=== PATIENT | male | born 1980 | race Caucasian/White ===

== ENCOUNTER 2021-04-24 07:49 | Outpatient (REF) | payer BC, SELFPAY ==
[2021-04-24 10:47] LABS: Alanine Aminotransferase 25 U/L (0-40); Albumin Level 4.6 g/dL (3.5-5.0); Alkaline Phosphatase 109 U/L (39-117); Anion Gap 14 (12-20); Aspartate Amino Transferase 17 U/L (5-37); Bilirubin Total 0.7 mg/dL (0.0-1.0); Blood Urea Nitrogen 13 mg/dL (9-16); Calcium 9.5 mg/dL (8.4-10.2); Carbon Dioxide 26 mmol/L (22-29); Chloride 104 mmol/L (96-108); Cholesterol 130 mg/dL; Estimated Glomerular Filt Rate > 60; Glucose Fasting 121 mg/dL (60-99); HDL Cholesterol 50 mg/dL; LDL Cholesterol Calculated 70 mg/dl; Potassium 4.4 mmol/L (3.3-5.1); Sodium 140 mmol/L (135-145); Total Protein 7.2 g/dL (6.5-8.0); Triglycerides 54 mg/dL
[2021-04-24 11:09] LABS: Free T4 (Free Thyroxine) 0.79 ng/dL (0.71-1.85); Thyroid Stimulating Hormone 0.48 uIU/mL (0.32-4.0); Vitamin D 25-OH Total 41.2 ng/mL (>30)
[2021-04-24 11:17] LABS: Creatinine Urine 136.39 mg/dL; Microalbum/Creatinine Ratio Ur 6.5 ug/mg cr
[2021-04-24 11:18] LABS: Vitamin B12 215 pg/mL (200-900)
[2021-04-25 08:36] LABS: LDL Cholesterol Direct 72 mg/dL (<100)
== END 2021-04-24 07:50 | disposition home or self-care (01) ==
LOC: HO.10HDL 07:49
PROVIDERS: Visit Provider Internal Medicine Endocrinology, Diabetes & Metabolism
DX: E11.9 Type 2 diabetes mellitus without complications (principal); E78.5 Hyperlipidemia, unspecified; E55.9 Vitamin D deficiency, unspecified; E66.3 Overweight; Z68.25 Body mass index [BMI] 25.0-25.9, adult; Z88.5 Allergy status to narcotic agent; Z79.84 Long term (current) use of oral hypoglycemic drugs
CPT/HCPCS: 36415; 80053; 80061; 82043; 82306; 82607; 82947; 83721; 84439; 84443

== ENCOUNTER → 2021-08-02 10:05 | Outpatient (BNVA) | payer BC, SELFPAY | PROVIDERS: PCP Nurse Practitioner Family; Visit Provider Orthopaedic Surgery ==

== ENCOUNTER 2021-10-18 15:30 | Emergency (ER) | payer BC, SELFPAY ==
--- NOTE | ~2021-10-18 | CT_ITS ---
EXAMINATION: CT ABDOMEN AND PELVIS WITHOUT CONTRAST CLINICAL INFORMATION: Right flank pain. COMPARISON: 09/15/2011 TECHNIQUE: Multidetector volumetric imaging was performed from the superior aspect of the liver through the pubic symphysis. Sagittal and coronal reformatted images were obtained on the technologist's workstation. This CT examination was performed using dose optimization techniques as appropriate, variously including the following: *Automated exposure control *Adjustment of mA and/or kV according to patient size (this includes techniques or standardized protocols for targeted exams where dose is matched to indication/reason for exam; i.e. extremities or head) *Use of iterative reconstruction technique DLP: 493 mGy-cm FINDINGS: LUNG BASES: Normal. No pulmonary consolidation or pleural effusion at either lung base. LIVER: The liver has normal size, shape, and attenuation. No evidence of liver mass. GALLBLADDER AND BILIARY TREE: Gallbladder is without radiopaque stones, wall thickening or pericholecystic fluid. No dilated bile ducts. PANCREAS: Normal. No edema, pancreatic ductal dilatation or mass. SPLEEN: Normal. ADRENAL GLANDS: Normal. LEFT KIDNEY AND URETER: There is chronic cortical loss/scarring of the anterior lower pole of the left kidney. No renal mass. A linear, 0.4 cm calculus in the upper pole of the left kidney is too small for acquisition of a reliable density measurement. This stone is located 8.6 cm deep from the skin surface at the posterior axillary line. No left-sided hydroureteronephrosis. RIGHT KIDNEY AND URETER: The kidney has normal size and cortical thickness. Mild right hydroureteronephrosis is caused by a stone measuring up to 0.4 cm at the L3 level of the proximal ureter. BLADDER: Normal. No calculi or wall thickening. BOWEL AND PERITONEUM: Stomach is unremarkable. No dilated loops of bowel. The appendix is normal. No overt bowel wall thickening or mesenteric fat stranding. No ascites or pneumoperitoneum. ABDOMINAL WALL: Unremarkable. VASCULATURE: Unremarkable. LYMPH NODES: No pathologic sized lymph nodes in the abdomen or pelvis. No inguinal lymphadenopathy. PELVIC VISCERA: Unremarkable. SKELETAL: Unremarkable. CT/CT abdomen pelvis wo con IMPRESSION: * Mild right hydronephrosis is caused by a 0.4 cm stone in the proximal ureter. * Small stone is present in the upper pole of the left kidney. No left-sided hydronephrosis.
[2021-10-18 17:33] VITALS: BP 135/94; PULSE 97; RESP 18; TEMP 37; O2SAT 99; BMI 26.2
[2021-10-18 17:51] LABS: MANUAL DIFF FLAG NO
[2021-10-18 17:52] LABS: Basophils Percent Auto 0.2 % (0-2); Eosinophils Percent Auto 0.1 % (0-4); Hematocrit 42.5 % (42.0-52.0); Hemoglobin 15.1 g/dl (14.0-18.0); Imm Gran Abs Auto 0.07 X10*3/uL (0.00-0.03); Imm Gran Pct Auto 0.5 % (0.0-0.4); Lymphocytes Absolute Auto 1.4 X10*3/uL (1.2-4.9); Lymphocytes Percent Auto 9.4 % (20-40); Mean Corpuscular HGB Conc 35.5 g/dl (31.0-36.0); Mean Corpuscular Hemoglobin 30.8 pg (27.0-33.0); Mean Corpuscular Volume 86.7 fL (80.0-98.0); Mean Platelet Volume 10.4 fL (9.4-12.4); Monocytes Absolute Auto 0.6 X10*3/uL (0.1-1.2); Neutrophils Absolute Auto 12.7 x10*3/uL (2.0-8.3); Neutrophils Percent Auto 85.8 % (45-73); Platelet Count 275 X10*3/uL (160-400); Red Cell Distribution Width 12.2 % (11.0-16.0); White Blood Count 14.8 X10*3/uL (4.8-10.8)
[2021-10-18 18:07] LABS: Alanine Aminotransferase 24 U/L (0-40); Alkaline Phosphatase 129 U/L (39-117); Anion Gap 15 (12-20); Aspartate Amino Transferase 18 U/L (5-37); Bilirubin Total 0.4 mg/dL (0.0-1.0); Blood Urea Nitrogen 15 mg/dL (9-16); Calcium 9.9 mg/dL (8.4-10.2); Carbon Dioxide 28 mmol/L (22-29); Chloride 101 mmol/L (96-108); Creatinine Clr Calc Pharmacy 77.5; Estimated Glomerular Filt Rate > 60; Glucose Random 147 mg/dL (60-115); Potassium 4.6 mmol/L (3.3-5.1); Sodium 139 mmol/L (135-145); Total Protein 7.8 g/dL (6.5-8.0)
[2021-10-18 19:15] LABS: Appearance Urine CLEAR; Color Urine YELLOW; Glucose Urine UA NEG (NEG); Leukocyte Esterase Urine NEG (NEG); Nitrite Urine NEG (NEG); Specific Gravity - Urine >= 1.030 (1.005-1.025); UACC Culture Trigger NO; Urine Blood 2+ (NEG); Urine Ketones 15 MG/DL (NEG); Urine Protein TRACE MG/DL (NEG-TRACE)
[2021-10-18 19:25] LABS: Calcium Oxalate Crystals Urine TRACE /LPF; Mucus Urine TRACE /LPF; Squamous Epithelial Cell Urine TRACE /LPF
[2021-10-18 19:26] LABS: WBC Urine 0-2 /HPF (0-4)
--- NOTE | 2021-10-18 21:19 | ED_ITS ---
HPI - Abdominal Pain General Chief Complaint: Abdominal Pain Stated Complaint: Kidney pain Time Seen by Provider: 10/18/21 21:19 Source: patient Mode of arrival: ambulatory Limitations: no limitations History of Present Illness HPI narrative: Pain in the right flank radiating to the right groin, pain started 3 days ago but got worse today. Patient denies dysuria or hematuria. Patient denies fever, vomiting or diarrhea. States he was sweating. MD elicited complaint: abdominal pain and flank pain Pertinent past history: kidney stones Onset (ago): day(s) Pain Consistency: intermittent Location: RUQ and R flank Severity: moderate Quality: other (twisting) Radiation: other (right groin) Related Data Previous Rx's Medication Instructions Recorded OneTouch UltraSoft Lancets #50 ea NS 04/24/21 (lancets) atorvastatin 10 mg tablet 10 mg PO DAILY 30 Days #30 tab 04/24/21 blood sugar diagnostic (OneTouch #50 ea 04/24/21 Verio test strips) cholecalciferol (vitamin D3) 50 50 mcg PO DAILY 30 Days #30 cap 04/24/21 mcg (2,000 unit) capsule metformin 500 mg tablet,extended 1,000 mg PO BID 30 Days #120 tab 04/24/21 release 24 hr naproxen 500 mg tablet (Naprosyn) 500 mg PO BID #20 tab 10/18/21 prednisone 20 mg tablet 20 mg PO DAILY #14 tab 10/18/21 tamsulosin 0.4 mg capsule (Flomax) 0.4 mg PO BEDTIME #14 cap 10/18/21 Allergies Allergy/AdvReac Type Severity Reaction Status Date / Time morphine [MORPHINE] Allergy Intermediate HIVES Verified 10/18/21 17:33 oxycodone Allergy Hives Verified 10/18/21 17:33 Review of Systems Constitutional: Reports no additional constitutional complaints Eyes: Reports no additional eye complaints Denies dizziness Cardiovascular: Reports no additional cardiovascular complaints Respiratory: Reports as per HPI Gastrointestinal: Reports no additional gastrointestinal complaints Musculoskeletal: Reports no additional musculoskeletal complaints Skin/Breast: Denies rash Reports system reviewed and no additional complaints, except as documented, Denies dizziness and Denies Sensory deficit (Neuro) Psychiatric: Denies anxiety Physical Exam Vital Signs: Vital Signs: Last Vital Signs Temp 98.6 F 10/18/21 17:33 Pulse 80 10/18/21 22:05 Resp 16 10/18/21 22:05 BP 119/79 10/18/21 22:05 Pulse Ox 97 10/18/21 22:05 Body Mass Index 26.2 Const: General: healthy appearing Nutritional Appearance: average body habitus Orientation/consciousness: oriented to person and patient oriented x3 Limitations: no limitations HENMT: Head: Yes normal to inspection Ears: external ears normal General nose exam: Normal external nose present Mouth: Normal oral and palatal mucosa present and oropharynx normal Throat: Yes posterior oropharynx normal Eyes: General: appearance normal, both eyes and all related structures Neck: Other: supple Neck: Yes normal visual inspection Chest: Chest palpation & inspection: normal inspection of the chest Resp: Auscultation: clear to auscultation bilaterally Cardio: Jugular venous distension: no JVD Rate: regular rate Rhythm: regular rhythm Heart sounds: S1 normal heart sound present and S2 normal heart sound present GI: Inspection: Yes normal to inspection Palpation (GI): Soft to palpation, nontender and No hepatosplenomegaly present Auscultation: normal bowel sounds : General: Yes no CVA tenderness Back/Spine/Pelvis: Back: no CVA tenderness Skin: General skin exam: no rashes or lesions noted Neuro: General: oriented to person and patient oriented x3 Cranial nerves: Yes CN's II-XII intact bilaterally Motor exam (neuro): 5/5 motor strength present throughout Sensory Exam: No Sensory deficit (Neuro) Extrem: General: Yes normal to inspection Psych: Appearance: grossly normal Course Reevaluation(s) Reevaluation #1: patient with 4mm proximal ureteral stone with hydro. Will place on naprosyn, flomax, steroids and refer to Dr. Roldan Time: 23:23 MDM - Abdominal Pain Lab Data Result diagrams: 10/18/21 17:41 10/18/21 17:41 Labs: Lab Results 10/18/21 10/18/21 10/18/21 Range/Units 17:41 17:41 18:29 WBC 14.8 H (4.8-10.8) X10*3/uL RBC 4.90 (4.60-5.80) X10*6/uL Hgb 15.1 (14.0-18.0) g/dl Hct 42.5 (42.0-52.0) % MCV 86.7 (80.0-98.0) fL MCH 30.8 (27.0-33.0) pg MCHC 35.5 (31.0-36.0) g/dl RDW 12.2 (11.0-16.0) % Plt Count 275 (160-400) X10*3/uL MPV 10.4 (9.4-12.4) fL Immature Gran % (Auto) 0.5 H (0.0-0.4) % Neut % (Auto) 85.8 H (45-73) % Lymph % (Auto) 9.4 L (20-40) % [place] % (Auto) 4.0 (2-11) % Eos % (Auto) 0.1 (0-4) % Baso % (Auto) 0.2 (0-2) % Lymph # (Auto) 1.4 (1.2-4.9) X10*3/uL [place] # (Auto) 0.6 (0.1-1.2) X10*3/uL Eos # (Auto) 0.0 (0.0-0.4) X10*3/uL Baso # (Auto) 0.0 (0.0-0.2) X10*3/uL Abs Immat Gran (auto) 0.07 H (0.00-0.03) X10*3/uL Absolute Neuts (auto) 12.7 H (2.0-8.3) x10*3/uL Absolute Nucleated RBC 0.000 (0.0-0.012) X10*3/uL Nucleated RBC % (auto) 0.0 (0.0-0.2) /100WBC Sodium 139 (135-145) mmol/L Potassium 4.6 (3.3-5.1) mmol/L Chloride 101 (96-108) mmol/L Carbon Dioxide 28 (22-29) mmol/L Anion Gap 15 (12-20) BUN 15 (9-16) mg/dL Creatinine 1.16 (0.5-1.4) mg/dL Estim Creat Clear Calc 77.5 Estimated GFR > 60 Random Glucose 147 H (60-115) mg/dL Calcium 9.9 (8.4-10.2) mg/dL Total Bilirubin 0.4 (0.0-1.0) mg/dL AST 18 (5-37) U/L ALT 24 (0-40) U/L Alkaline Phosphatase 129 H (39-117) U/L Total Protein 7.8 (6.5-8.0) g/dL Albumin 5.0 (3.5-5.0) g/dL Urine Color YELLOW Urine Appearance CLEAR Urine pH 6.0 (5.0-8.0) Ur Specific [place] >= 1.030 H (1.005-1.025) Urine Protein TRACE (NEG-TRACE) MG/DL Urine Glucose (UA) NEG (NEG) MG/DL Urine Ketones 15 (NEG) MG/DL Urine Blood 2+ H (NEG) Urine Nitrite NEG (NEG) Ur Leukocyte Esterase NEG (NEG) Urine RBC 10-14 H (0) /HPF Urine WBC 0-2 (0-4) /HPF Ur Squamous Epith Cells TRACE /LPF Calcium Oxalate Crystal TRACE /LPF Urine Bacteria NONE /LPF Urine Mucus TRACE /LPF Imaging Data CT scan - abdomen: Radiologist's impression: IMPRESSION: *? Mild right hydronephrosis is caused by a 0.4 cm stone in the proximal ureter. *? Small stone is present in the upper pole of the left kidney. No left-sided hydronephrosis. ? Discharge Plan Discharge Clinical Impression: Renal colic on right side Patient Disposition: Home, Self-Care Instructions: Kidney Stones (ED), Renal Colic (ED), How to Strain Your Urine (ED) Additional Instructions: strain all urine for kidney stones Prescriptions: New naproxen [Naprosyn] 500 mg tablet 500 mg PO BID Qty: 20 RF: 0 tamsulosin [Flomax] 0.4 mg capsule 0.4 mg PO BEDTIME Qty: 14 RF: 0 prednisone 20 mg tablet 20 mg PO DAILY Qty: 14 RF: 0 No Action atorvastatin 10 mg tablet 10 mg PO DAILY 30 Days Qty: 30 RF: 6 (DME) OneTouch Verio test strips Strip See Rx Instructions .ROUTE .MEDSUPPLY Qty: 50 RF: 6 cholecalciferol (vitamin D3) 50 mcg (2,000 unit) capsule 50 mcg PO DAILY 30 Days Qty: 30 RF: 6 (DME) lancets [OneTouch UltraSoft Lancets] Misc See Rx Instructions .ROUTE .MEDSUPPLY Qty: 50 RF: 5 metformin 500 mg tablet extended release 24 hr 1,000 mg PO BID 30 Days Qty: 120 RF: 6 Referrals: Eric Roldan MD [Physician] - 1 week [facility] Past Medical History Medical History Diabetes type 2, controlled Dyslipidemia Overweight (BMI 25.0-29.9) Vitamin D deficiency Surgical History Hx of elbow surgery Family History Family History Father Diabetes mellitus Mother Diabetes mellitus Brother No problems noted. Sister Diabetes mellitus Sister No problems noted. Sister No problems noted. Sister No problems noted. Sister No problems noted. Sister No problems noted. Social History Social History Advance Directives: No Advance Directives Information Provided: No
[2021-10-18 22:05] VITALS: BP 119/79; PULSE 80; RESP 16; O2SAT 97
[2021-10-18] MEDS: Tamsulosin HCL 0.4 MG CAPSULE PO (23:42)
[2021-10-18] MEDS: Ketorolac Tromethamine 15 MG/ML VIAL 30 MG IVPUSH (23:42)
[2021-10-18] MEDS: predniSONE 20 MG TABLET PO (23:42)
== END 2021-10-18 23:48 | disposition home or self-care (01) ==
PROVIDERS: Emergency Provider Emergency Medicine; PCP Nurse Practitioner Family
DX: N13.2 Hydronephrosis with renal and ureteral calculous obstruction (principal); E11.9 Type 2 diabetes mellitus without complications; E78.5 Hyperlipidemia, unspecified; Z79.02 Long term (current) use of antithrombotics/antiplatelets; Z79.899 Other long term (current) drug therapy
CPT/HCPCS: 36415; 74176; 80053; 81001; 85025; 96374; 99284; J1885

== ENCOUNTER → 2022-02-04 09:11 | Outpatient (BNVA) | payer BC, SELFPAY | PROVIDERS: PCP Nurse Practitioner Family; Visit Provider Orthopaedic Surgery ==

== ENCOUNTER 2022-04-23 07:17 | Outpatient (REF) | payer BC, SELFPAY ==
--- NOTE | ~2022-04-23 | MR_ITS ---
EXAMINATION: MRI ELBOW WITHOUT CONTRAST, RIGHT CLINICAL INFORMATION: Right elbow mass with pain. Multiple prior surgeries. Dermoid tumor. COMPARISON: Most recent right elbow MRI dated 02/24/2019. TECHNIQUE: Multisequence MR imaging of the right elbow was obtained without contrast on a high-field strength scanner. FINDINGS: Ulnar collateral ligament: Intact. Common flexor tendon: Intact. Radial collateral ligament: Intact. Common extensor tendon: Mild increased T2 signal within the common extensor tendon, consistent with mild tendinosis and similar when compared to the prior examination. No measurable tear. Biceps/triceps tendon: Intact. Articular cartilage/bone: Intact. Ulnar nerve: Intact. Joint fluid/soft tissues: There is a lobulated, heterogeneously isointense T1 and hyperintense T2 soft tissue mass along the posterolateral aspect of the elbow, similar in location when compared to the prior examination. This has significantly increased in size and currently measures up to 2.3 x 6.3 x 8.1 cm (AP x ML x CC). Minimal adjacent soft tissue edema. This previous study measured up to 1.2 x 3.9 x 4.4 cm. No additional soft tissue mass or fluid collection. No joint effusion. MR/MR elbow RT wo con IMPRESSION: 1. Redemonstration of a lobulated, heterogeneous soft tissue mass along the posterolateral aspect of the elbow measuring up to 2.3 x 6.3 x 8.1 cm. A previously seen mass measured up to 1.2 x 3.9 x 4.4 cm on 02/24/2019. Findings could represent significant interval increase in size versus a recurrent mass. No additional soft tissue mass or fluid collection. 2. Mild common extensor tendinosis, unchanged. No measurable tear.
== END 2022-04-23 07:18 | disposition home or self-care (01) ==
LOC: HO.MRI 07:17
PROVIDERS: Visit Provider Orthopaedic Surgery
DX: R22.31 Localized swelling, mass and lump, right upper limb (principal); D46.1 Refractory anemia with ring sideroblasts
CPT/HCPCS: 73221

== ENCOUNTER 2022-12-20 13:53 | Emergency (ER) | payer BC, SELFPAY ==
--- NOTE | ~2022-12-20 | CT_ITS ---
EXAMINATION: CT ABDOMEN AND PELVIS WITHOUT CONTRAST CLINICAL INFORMATION: Left flank/abdominal pain. History of calculi COMPARISON: 10/18/2021 TECHNIQUE: Multidetector volumetric imaging was performed from the lung bases through the pubic symphysis. Sagittal and coronal reformatted images were obtained on the technologist workstation. This CT examination was performed using dose optimization techniques as appropriate, variously including the following: *Automated exposure control *Adjustment of mA and/or kV according to patient size (this includes techniques or standardized protocols for targeted exams where dose is matched to indication/reason for exam; i.e. extremities or head) *Use of iterative reconstruction technique FINDINGS: The lack of intravenous contrast limits evaluation of the solid visceral organs including the liver, spleen, pancreas, and kidneys. LUNG BASES: The visualized lung bases are unremarkable. LIVER, GALLBLADDER, AND BILIARY TREE: Limited non-contrast evaluation is normal. No gross focal hepatic lesion. Normal liver size and contour. No gross biliary ductal dilation. The gallbladder is unremarkable with no evidence of radiopaque gallstones, gallbladder wall thickening, or obvious pericholecystic inflammatory changes. PANCREAS: Limited non-contrast evaluation is normal. No ailyn-pancreatic fluid. SPLEEN: Limited non-contrast evaluation is normal. ADRENAL GLANDS: Normal; no adrenal mass. KIDNEYS AND URETERS: Normal appearance of the right kidney. There is cortical thinning, atrophy, and volume loss of the anterior cortex of the lower pole of the left kidney. There is asymmetric left perinephric fluid and fat stranding. Mildly dilated left ureter followed into the pelvis where there is a 3 mm calculus on image 81/101. Additional pelvic phleboliths are present. No right-sided urolithiasis. GASTROINTESTINAL TRACT: Stomach is significantly distended. Small bowel nondilated. Normal appendix. Scattered colonic diverticulosis. No evidence of colitis or diverticulitis. ABDOMINAL WALL: Postoperative changes in the inguinal canals bilaterally. LYMPH NODES: No pathologically enlarged lymph nodes in the abdomen or pelvis. VASCULAR: Normal caliber abdominal aorta. BLADDER: Unremarkable. PELVIC VISCERA: Unremarkable. OSSEOUS STRUCTURES: No acute or suspicious osseous abnormalities. CT/CT abdomen pelvis wo IV con IMPRESSION: 3 mm left distal ureteral calculus results in left hydroureter and asymmetric left periureteral and perinephric fat stranding.
--- NOTE | 2022-12-20 13:59 | ED_ITS ---
HPI - Abdominal Pain General Chief Complaint: General Medical <Lore Vásquez CNP - Last Filed: 12/20/22 14:07> Stated Complaint: kidney stone pain <Lore Vásquez CNP - Last Filed: 12/20/22 14:07> Time Seen by Provider: 12/20/22 15:22 <Lore Vásquez CNP - Last Filed: 12/20/22 14:07> Source: patient <Bjorn Brown MD - Last Filed: 12/20/22 16:39> Mode of arrival: ambulatory <Bjorn Brown MD - Last Filed: 12/20/22 16:39> Limitations: no limitations <Bjorn Brown MD - Last Filed: 12/20/22 16:39> History of Present Illness HPI narrative: 42-year-old male with history of kidney stones presents with left flank pain. Pain started acutely today. The pain was a 10/10 previously. Currently a 9/10. Pain has been constant. It is sharp and severe. It is similar to previous kidney stone pain he has had in the past. However, this time his pain is more intense. There is no clear relieving or exacerbating features. He does have urinary frequency but no hematuria or dysuria. He denies any nausea or vomiting. He has no diarrhea or constipation. He also denies any fevers or chills. <Bjorn Brown MD - Last Filed: 12/20/22 16:39> Related Data Home Medications: Previous Rx's Medication Instructions Recorded OneTouch UltraSoft Lancets #50 ea 04/24/21 (lancets) blood sugar diagnostic (OneTouch #50 ea 04/24/21 Verio test strips) naproxen 500 mg tablet (Naprosyn) 500 mg PO BID #20 tabs 10/18/21 tamsulosin 0.4 mg capsule (Flomax) 0.4 mg PO BEDTIME #14 caps 10/18/21 cholecalciferol (vitamin D3) 50 50 mcg PO DAILY 30 days #30 caps 08/17/22 mcg (2,000 unit) capsule metformin 500 mg tablet,extended 1,000 mg PO BID 30 days #120 tabs 08/17/22 release 24 hr atorvastatin 10 mg tablet 10 mg PO DAILY 30 days #30 tabs 10/22/22 ibuprofen 600 mg tablet 600 mg PO Q8H PRN pain #14 tabs 12/20/22 ondansetron 4 mg disintegrating 4 mg PO Q8H PRN nausea and 12/20/22 tablet vomiting #10 tabs ondansetron 4 mg disintegrating 4 mg PO Q8H PRN nausea and 12/20/22 tablet vomiting #10 tabs <Lore Vásquez CNP - Last Filed: 12/20/22 14:07> Allergies/Adverse Reactions: Allergies Allergy/AdvReac Type Severity Reaction Status Date / Time morphine [MORPHINE] Allergy Intermediate HIVES Verified 12/20/22 14:08 oxycodone Allergy Hives Verified 12/20/22 14:08 <Lore Vásquez CNP - Last Filed: 12/20/22 14:07> Review of Systems Review of Systems Yes all other systems are reviewed and are negative <Bjorn Brown MD - Last Filed: 12/20/22 16:39> Constitutional: Reports no additional constitutional complaints <Bjorn Brown MD - Last Filed: 12/20/22 16:39> Eyes: Reports no additional eye complaints <Bjorn Brown MD - Last Filed: 12/20/22 16:39> Reports system reviewed and no additional complaints, except as documented <Bjorn Brown MD - Last Filed: 12/20/22 16:39> Cardiovascular: Reports no additional cardiovascular complaints <Bjorn Borwn MD - Last Filed: 12/20/22 16:39> Respiratory: Reports no additional respiratory complaints <Bjorn Brown MD - Last Filed: 12/20/22 16:39> Gastrointestinal: Reports no additional gastrointestinal complaints and Reports abdominal pain <Bjorn Brown MD - Last Filed: 12/20/22 16:39> Genitourinary: Reports as per HPI <Bjorn Brown MD - Last Filed: 12/20/22 16:39> Musculoskeletal: Reports no additional musculoskeletal complaints <Bjorn Brown MD - Last Filed: 12/20/22 16:39> Skin/Breast: Reports system reviewed and no additional complaints, except as docu <Bjorn Brown MD - Last Filed: 12/20/22 16:39> Reports system reviewed and no additional complaints, except as documented <Bjorn Brown MD - Last Filed: 12/20/22 16:39> Psychiatric: Reports no additional psychiatric complaints <Bjorn Brown MD - Last Filed: 12/20/22 16:39> Endocrine: Reports no additional endocrine complaints <Bjorn Brown MD - Last Filed: 12/20/22 16:39> Hematologic/Lymphatic: Reports no additional hematologic/lymphatic complaints <Bjorn Brown MD - Last Filed: 12/20/22 16:39> [facility] Past Medical History Medical History: Medical History Diabetes type 2, controlled Dyslipidemia Mass of right elbow Overweight (BMI 25.0-29.9) Vitamin D deficiency <Lore Vásquez CNP - Last Filed: 12/20/22 14:07> Surgical History: Surgical History Hx of elbow surgery <Lore Vásquez CNP - Last Filed: 12/20/22 14:07> Family History Family History: Family History Father Diabetes mellitus Mother Diabetes mellitus Brother No problems noted. Sister Diabetes mellitus Sister No problems noted. Sister No problems noted. Sister No problems noted. Sister No problems noted. Sister No problems noted. <Lore Vásquez CNP - Last Filed: 12/20/22 14:07> Social History Social History: Social History Advance Directives: No <Lore Vásquez CNP - Last Filed: 12/20/22 14:07> Physical Exam ED Vital Signs: Vital Signs - 24 hr 12/20/22 14:01 12/20/22 15:05 12/20/22 17:30 Temperature 98.4 F 98.2 F Pulse Rate 86 91 99 Respiratory Rate 20 20 20 Blood Pressure 139/97 H 148/97 H 144/93 H Pulse Oximetry 98 99 97 Oxygen Delivery Method Room Air Room Air Room Air BMI result Body Mass Index 27.0 <Lore Vásquez CNP - Last Filed: 12/20/22 14:07> Vital Signs - 24 hr 12/20/22 14:01 12/20/22 15:05 12/20/22 17:30 Temperature 98.4 F 98.2 F Pulse Rate 86 91 99 Respiratory Rate 20 20 20 Blood Pressure 139/97 H 148/97 H 144/93 H Pulse Oximetry 98 99 97 Oxygen Delivery Method Room Air Room Air Room Air BMI result Body Mass Index 27.0 <Bjorn Brown MD - Last Filed: 12/20/22 16:39> Vital Signs - 24 hr 12/20/22 14:01 12/20/22 15:05 12/20/22 17:30 Temperature 98.4 F 98.2 F Pulse Rate 86 91 99 Respiratory Rate 20 20 20 Blood Pressure 139/97 H 148/97 H 144/93 H Pulse Oximetry 98 99 97 Oxygen Delivery Method Room Air Room Air Room Air BMI result Body Mass Index 27.0 <Kait Pacheco MD - Last Filed: 12/20/22 17:57> Const General: cooperative, healthy appearing, comfortable, no acute distress, well developed, alert, awake and Physically active <Bjorn Brown MD - Last Filed: 12/20/22 16:39> HENMT Head: Yes normal to inspection <Bjorn Brown MD - Last Filed: 12/20/22 16:39> Eyes General: appearance normal, both eyes and all related structures <Bjorn Brown MD - Last Filed: 12/20/22 16:39> Neck Neck: Yes full ROM <Bjorn Brown MD - Last Filed: 12/20/22 16:39> Resp Effort & Inspection: normal respiratory effort <Bjorn Brown MD - Last Filed: 12/20/22 16:39> Auscultation: clear to auscultation bilaterally <Bjorn Brown MD - Last Filed: 12/20/22 16:39> Cardio Rate: regular rate <Bjorn Brown MD - Last Filed: 12/20/22 16:39> Rhythm: regular rhythm <Bjorn Brown MD - Last Filed: 12/20/22 16:39> GI Palpation (GI): Soft to palpation, nontender and no guarding <Bjorn Brown MD - Last Filed: 12/20/22 16:39> General: Yes CVA tenderness (Left) <Bjorn Brown MD - Last Filed: 12/20/22 16:39> Back/Spine/Pelvis Back: CVA tenderness (Left) <Bjorn Brown MD - Last Filed: 12/20/22 16:39> Skin General skin exam: no rashes or lesions noted <Bjorn Brown MD - Last Filed: 12/20/22 16:39> Neuro General: no focal motor deficits <Bjorn Brown MD - Last Filed: 12/20/22 16:39> Extrem General: Yes normal to inspection <Bjorn Brown MD - Last Filed: 12/20/22 16:39> Psych Mental Status: mental status grossly normal <Bjorn Brown MD - Last Filed: 12/20/22 16:39> Course Course Course Narrative: This is an RME: Additional HPI, ROS, PE not included below will be deferred to primary provider. Patient is a 42 year old male presenting to the ED with report left flank/ ABD pain with onset 1.5 hours [employer]. Urinary frequeny associated. denies dysuria, hematuria, fevers, chills. Reports hx of kidney stones, and pain feels similar to this. Took ibuprofen 800mg without improvement. 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 Patient is a 42 year old male presenting to the ED with report left flank/ ABD pain with onset 1.5 hours [employer]. Urinary frequeny associated. denies dysuria, hematuria, fevers, chills. Reports hx of kidney stones, and pain feels similar to this. Took ibuprofen 800mg without im provement. 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 The pain is moderate to severe in nature. It also reports left-sided abdominal pain but there is no tenderness. Does have left CVA tenderness. This highly suggestive of ureterolithiasis. Patient received Toradol with minimal improvement in his symptoms. Reports allergy to morphine. I will ask the patient if he has any significant allergies to Dilaudid at which point we can given this medication. He does have a sister with become up from the hospital. <Bjorn Brown MD - Last Filed: 12/20/22 16:39> Reevaluation(s) Reevaluation #1: Discuss results and discharge plan with patient. Patient is still having pain. Given his allergy, will give patient additional Tylenol at this time. Patient will be discharged once we have a urinalysis available to make sure he does not have an infected stone. Dr. Pacheco will assume care pending urinal ysis. Discharge plans have already been created on behalf the patient is seeming to safe discharge is available. <Bjorn Brown MD - Last Filed: 12/20/22 16:39> Time: 16:39 <Bjorn Brown MD - Last Filed: 12/20/22 16:39> Reevaluation #2: Urinalysis is negative for UTI. Patient does have blood in the urine likely secondary to ureterolithiasis. No antibiotic indicated at this time. <Kait Pacheco MD - Last Filed: 12/20/22 17:57> Medical Decision Making Medical Decision Making [facility] Narrative: 42-year-old male with history of nephrolithiasis presents with left flank and abdominal pain. Examination left CVA tenderness. He is otherwise in no acute distress. His abdomen was not acute by any nature. Denies any nausea vomiting. A CT scan has been ordered. Urinalysis is still pending collection. Patient received Ketoralac without significant improvement. Will discuss other analgesic alternatives. <Bjorn Brown MD - Last Filed: 12/20/22 16:39> Differential Diagnosis Differential Diagnoses: The differential diagnosis associated with the presentation includes (Diverticulitis, ureterolithiasis, nephrolithiasis, colitis, IBD, IBS, shingles) <Bjorn Brown MD - Last Filed: 12/20/22 16:39> Admission/Observation Consideration of admission/observation: Escalation of care including admission/observation considered <Bjorn Brown MD - Last Filed: 12/20/22 16:39> Based on my current evaluation, patient does not warrant hospitalization. Will re-evaluate patient pending results. <Bjorn Brown MD - Last Filed: 12/20/22 16:39> Lab Data [facility] Lab Attestation statement: I reviewed the patient's lab results. <Bjorn Brown MD - Last Filed: 12/20/22 16:39> Result Diagrams: 12/20/22 14:17 12/20/22 14:17 <Lore Vásquez CNP - Last Filed: 12/20/22 14:07> Labs: Lab Results 12/20/22 12/20/22 12/20/22 Range/Units 14:17 14:17 17:05 WBC 9.5 (4.8-10.8) X10*3/uL RBC 5.63 (4.60-5.80) X10*6/uL Hgb 16.6 (14.0-18.0) g/dl Hct 46.5 (42.0-52.0) % MCV 82.6 (80.0-98.0) fL MCH 29.5 (27.0-33.0) pg MCHC 35.7 (31.0-36.0) g/dl RDW 11.9 (11.0-16.0) % Plt Count 274 (160-400) X10*3/uL MPV 10.9 (9.4-12.4) fL Immature Gran % (Auto) 0.4 (0.0-0.4) % Neut % (Auto) 71.4 (45-73) % Lymph % (Auto) 22.7 (20-40) % [place] % (Auto) 5.0 (2-11) % Eos % (Auto) 0.1 (0-4) % Baso % (Auto) 0.4 (0-2) % Lymph # (Auto) 2.2 (1.2-4.9) X10*3/uL [place] # (Auto) 0.5 (0.1-1.2) X10*3/uL Eos # (Auto) 0.0 (0.0-0.4) X10*3/uL Baso # (Auto) 0.0 (0.0-0.2) X10*3/uL Abs Immat Gran (auto) 0.04 H (0.00-0.03) X10*3/uL Absolute Neuts (auto) 6.8 (2.0-8.3) x10*3/uL Absolute Nucleated RBC 0.000 (0.0-0.012) X10*3/uL Nucleated RBC % (auto) 0.0 (0.0-0.2) /100WBC Sodium 138 (135-145) mmol/L Potassium 4.1 (3.3-5.1) mmol/L Chloride 100 (96-108) mmol/L Carbon Dioxide 27 (22-29) mmol/L Anion Gap 15 (12-20) BUN 16 (9-16) mg/dL Creatinine 1.17 (0.5-1.4) mg/dL Estim Creat Clear Calc 78.7 Estimated GFR > 60 Random Glucose 154 H (60-115) mg/dL Calcium 10.1 (8.4-10.2) mg/dL Total Bilirubin 0.8 (0.0-1.0) mg/dL AST 20 (5-37) U/L ALT 24 (0-40) U/L Alkaline Phosphatase 153 H (39-117) U/L Total Protein 7.8 (6.5-8.0) g/dL Albumin 4.9 (3.5-5.0) g/dL Urine Color Yellow Urine Appearance Clear Urine pH 5.5 (5.0-9.0) Ur Specific [place] >= 1.030 H (1.005-1.025) Urine Protein Trace (Neg-Trace) mg/dL Urine Glucose (UA) 100 H (Negative) mg/dL Urine Ketones 15 (Negative) mg/dL Urine Blood Small (1+) H (Negative) Urine Nitrite Negative (Negative) Ur Leukocyte Esterase Negative (Negative) Urine RBC >20 H (0-2) /HPF Urine WBC 0-5 (0-5) /HPF Ur Squamous Epith Cells 0-2 (0-2) /HPF Urine Bacteria None Seen (None Seen) Hyaline Casts 0-2 (0-2) /LPF <Lore Vásquez CNP - Last Filed: 12/20/22 14:07> Lab Results 12/20/22 12/20/22 12/20/22 Range/Units 14:17 14:17 17:05 WBC 9.5 (4.8-10.8) X10*3/uL RBC 5.63 (4.60-5.80) X10*6/uL Hgb 16.6 (14.0-18.0) g/dl Hct 46.5 (42.0-52.0) % MCV 82.6 (80.0-98.0) fL MCH 29.5 (27.0-33.0) pg MCHC 35.7 (31.0-36.0) g/dl RDW 11.9 (11.0-16.0) % Plt Count 274 (160-400) X10*3/uL MPV 10.9 (9.4-12.4) fL Immature Gran % (Auto) 0.4 (0.0-0.4) % Neut % (Auto) 71.4 (45-73) % Lymph % (Auto) 22.7 (20-40) % [place] % (Auto) 5.0 (2-11) % Eos % (Auto) 0.1 (0-4) % Baso % (Auto) 0.4 (0-2) % Lymph # (Auto) 2.2 (1.2-4.9) X10*3/uL [place] # (Auto) 0.5 (0.1-1.2) X10*3/uL Eos # (Auto) 0.0 (0.0-0.4) X10*3/uL Baso # (Auto) 0.0 (0.0-0.2) X10*3/uL Abs Immat Gran (auto) 0.04 H (0.00-0.03) X10*3/uL Absolute Neuts (auto) 6.8 (2.0-8.3) x10*3/uL Absolute Nucleated RBC 0.000 (0.0-0.012) X10*3/uL Nucleated RBC % (auto) 0.0 (0.0-0.2) /100WBC Sodium 138 (135-145) mmol/L Potassium 4.1 (3.3-5.1) mmol/L Chloride 100 (96-108) mmol/L Carbon Dioxide 27 (22-29) mmol/L Anion Gap 15 (12-20) BUN 16 (9-16) mg/dL Creatinine 1.17 (0.5-1.4) mg/dL Estim Creat Clear Calc 78.7 Estimated GFR > 60 Random Glucose 154 H (60-115) mg/dL Calcium 10.1 (8.4-10.2) mg/dL Total Bilirubin 0.8 (0.0-1.0) mg/dL AST 20 (5-37) U/L ALT 24 (0-40) U/L Alkaline Phosphatase 153 H (39-117) U/L Total Protein 7.8 (6.5-8.0) g/dL Albumin 4.9 (3.5-5.0) g/dL Urine Color Yellow Urine Appearance Clear Urine pH 5.5 (5.0-9.0) Ur Specific [place] >= 1.030 H (1.005-1.025) Urine Protein Trace (Neg-Trace) mg/dL Urine Glucose (UA) 100 H (Negative) mg/dL Urine Ketones 15 (Negative) mg/dL Urine Blood Small (1+) H (Negative) Urine Nitrite Negative (Negative) Ur Leukocyte Esterase Negative (Negative) Urine RBC >20 H (0-2) /HPF Urine WBC 0-5 (0-5) /HPF Ur Squamous Epith Cells 0-2 (0-2) /HPF Urine Bacteria None Seen (None Seen) Hyaline Casts 0-2 (0-2) /LPF <Bjorn Brown MD - Last Filed: 12/20/22 16:39> Lab Results 12/20/22 12/20/22 12/20/22 Range/Units 14:17 14:17 17:05 WBC 9.5 (4.8-10.8) X10*3/uL RBC 5.63 (4.60-5.80) X10*6/uL Hgb 16.6 (14.0-18.0) g/dl Hct 46.5 (42.0-52.0) % MCV 82.6 (80.0-98.0) fL MCH 29.5 (27.0-33.0) pg MCHC 35.7 (31.0-36.0) g/dl RDW 11.9 (11.0-16.0) % Plt Count 274 (160-400) X10*3/uL MPV 10.9 (9.4-12.4) fL Immature Gran % (Auto) 0.4 (0.0-0.4) % Neut % (Auto) 71.4 (45-73) % Lymph % (Auto) 22.7 (20-40) % [place] % (Auto) 5.0 (2-11) % Eos % (Auto) 0.1 (0-4) % Baso % (Auto) 0.4 (0-2) % Lymph # (Auto) 2.2 (1.2-4.9) X10*3/uL [place] # (Auto) 0.5 (0.1-1.2) X10*3/uL Eos # (Auto) 0.0 (0.0-0.4) X10*3/uL Baso # (Auto) 0.0 (0.0-0.2) X10*3/uL Abs Immat Gran (auto) 0.04 H (0.00-0.03) X10*3/uL Absolute Neuts (auto) 6.8 (2.0-8.3) x10*3/uL Absolute Nucleated RBC 0.000 (0.0-0.012) X10*3/uL Nucleated RBC % (auto) 0.0 (0.0-0.2) /100WBC Sodium 138 (135-145) mmol/L Potassium 4.1 (3.3-5.1) mmol/L Chloride 100 (96-108) mmol/L Carbon Dioxide 27 (22-29) mmol/L Anion Gap 15 (12-20) BUN 16 (9-16) mg/dL Creatinine 1.17 (0.5-1.4) mg/dL Estim Creat Clear Calc 78.7 Estimated GFR > 60 Random Glucose 154 H (60-115) mg/dL Calcium 10.1 (8.4-10.2) mg/dL Total Bilirubin 0.8 (0.0-1.0) mg/dL AST 20 (5-37) U/L ALT 24 (0-40) U/L Alkaline Phosphatase 153 H (39-117) U/L Total Protein 7.8 (6.5-8.0) g/dL Albumin 4.9 (3.5-5.0) g/dL Urine Color Yellow Urine Appearance Clear Urine pH 5.5 (5.0-9.0) Ur Specific [place] >= 1.030 H (1.005-1.025) Urine Protein Trace (Neg-Trace) mg/dL Urine Glucose (UA) 100 H (Negative) mg/dL Urine Ketones 15 (Negative) mg/dL Urine Blood Small (1+) H (Negative) Urine Nitrite Negative (Negative) Ur Leukocyte Esterase Negative (Negative) Urine RBC >20 H (0-2) /HPF Urine WBC 0-5 (0-5) /HPF Ur Squamous Epith Cells 0-2 (0-2) /HPF Urine Bacteria None Seen (None Seen) Hyaline Casts 0-2 (0-2) /LPF <Kait Pacheco MD - Last Filed: 12/20/22 17:57> Radiology Impression Discussion of test interpretation with radiology: I have reviewed the radiologist's reading. (IMPRESSION: 3 mm left distal ureteral calculus results in left hydroureter and asymmetric left periureteral and perinephric fat stranding. Dictated By:Lonny Singer MDSigned By:<Electronically signed by Lonny Singer MD in [place]>12/20/22 2518) <Bjorn Brown MD - Last Filed: 12/20/22 16:39> External Record Review External record reviewed: Outpatient record (Endocrinology) <jBorn Brown MD - Last Filed: 12/20/22 16:39> Prescription Management I considered prescription management with: Pain Medication <Bjorn Brown MD - Last Filed: 12/20/22 16:39> Chronic Conditions Patient?s care impacted by: Diabetes <Bjorn Brown MD - Last Filed: 12/20/22 16:39> Medications Administered Discontinued Medications Generic Name Dose Route Start Last Admin Trade Name Freq PRN Reason Stop Dose Admin Acetaminophen 975 mg 12/20/22 16:39 12/20/22 16:47 Acetaminophen 325 Mg Tablet PO 12/20/22 16:40 975 mg ONCE ONE Administration Sodium Chloride 1,000 mls @ 999 mls/hr 12/20/22 15:45 12/20/22 16:48 Ns IV 12/20/22 16:45 Infused .Q1H1M RANDI Infusion Ketorolac Tromethamine 30 mg 12/20/22 14:54 12/20/22 14:59 Ketorolac Tromethamine 30 Mg/Ml Vial IM 12/20/22 14:55 30 mg ONCE ONE Administration <Lore Vásquez CNP - Last Filed: 12/20/22 14:07> Medications Administered Discontinued Medications Generic Name Dose Route Start Last Admin Trade Name Freq PRN Reason Stop Dose Admin Acetaminophen 975 mg 12/20/22 16:39 12/20/22 16:47 Acetaminophen 325 Mg Tablet PO 12/20/22 16:40 975 mg ONCE ONE Administration Sodium Chloride 1,000 mls @ 999 mls/hr 12/20/22 15:45 12/20/22 16:48 Ns IV 12/20/22 16:45 Infused .Q1H1M RANDI Infusion Ketorolac Tromethamine 30 mg 12/20/22 14:54 12/20/22 14:59 Ketorolac Tromethamine 30 Mg/Ml Vial IM 12/20/22 14:55 30 mg ONCE ONE Administration <Bjorn Brown MD - Last Filed: 12/20/22 16:39> Medications Administered Discontinued Medications Generic Name Dose Route Start Last Admin Trade Name Freq PRN Reason Stop Dose Admin Acetaminophen 975 mg 12/20/22 16:39 12/20/22 16:47 Acetaminophen 325 Mg Tablet PO 12/20/22 16:40 975 mg ONCE ONE Administration Sodium Chloride 1,000 mls @ 999 mls/hr 12/20/22 15:45 12/20/22 16:48 Ns IV 12/20/22 16:45 Infused .Q1H1M RANDI Infusion Ketorolac Tromethamine 30 mg 12/20/22 14:54 12/20/22 14:59 Ketorolac Tromethamine 30 Mg/Ml Vial IM 12/20/22 14:55 30 mg ONCE ONE Administration <Kait Pacheco MD - Last Filed: 12/20/22 17:57> Discharge Plan Discharge Clinical Impression: Left flank pain, Renal colic <Lore Vásquez CNP - Last Filed: 12/20/22 14:07> Patient Disposition: Home, Self-Care <Lore Vásquez CNP - Last Filed: 12/20/22 14:07> Instructions: Renal Colic (ED) <Lore Vásquez CNP - Last Filed: 12/20/22 14:07> Additional Instructions: Please follow-up with your primary care physician tomorrow. If you have any worsening or new symptoms, please return to the emergency room or call 911 <Lore Vásquez CNP - Last Filed: 12/20/22 14:07> Prescriptions: New ondansetron 4 mg tablet,disintegrating 4 mg PO Q8H PRN (Reason: nausea and vomiting) Qty: 10 0RF ibuprofen 600 mg tablet 600 mg PO Q8H PRN (Reason: pain) Qty: 14 0RF ondansetron 4 mg tablet,disintegrating 4 mg PO Q8H PRN (Reason: nausea and vomiting) Qty: 10 0RF No Action cholecalciferol (vitamin D3) 50 mcg (2,000 unit) capsule 50 mcg PO DAILY 30 Days Qty: 30 6RF metformin 500 mg tablet extended release 24 hr 1,000 mg PO BID 30 Days Qty: 120 6RF atorvastatin 10 mg tablet 10 mg PO DAILY 30 Days Qty: 30 6RF naproxen [Naprosyn] 500 mg tablet 500 mg PO BID Qty: 20 0RF tamsulosin [Flomax] 0.4 mg capsule 0.4 mg PO BEDTIME Qty: 14 0RF (DME) OneTouch Verio test strips Strip See Rx Instructions .ROUTE .MEDSUPPLY Qty: 50 6RF Rx Instructions: Once a day (DME) lancets [OneTouch UltraSoft Lancets] [facility] See Rx Instructions .ROUTE .MEDSUPPLY Qty: 50 5RF Rx Instructions: once a day <Lore Vásquez CNP - Last Filed: 12/20/22 14:07> Referrals: [facility] [Provider Group] - 5 days <Lore Vásquez CNP - Last Filed: 12/20/22 14:07>
[2022-12-20 14:01] VITALS: BP 139/97; PULSE 86; RESP 20; TEMP 36.9; O2SAT 98; BMI 27.0
[2022-12-20 14:23] LABS: MANUAL DIFF FLAG NO
--- NOTE | 2022-12-20 14:25 | PC.NURSE ---
42 y/o M pw R flank pain that started last night. pt has a hx of kidney stones and states that this feels similar. No pain/difficulty on urination. no other complaints. VSS, aox3. 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
[2022-12-20 14:27] LABS: Basophils Percent Auto 0.4 % (0-2); Eosinophils Percent Auto 0.1 % (0-4); Hematocrit 46.5 % (42.0-52.0); Hemoglobin 16.6 g/dl (14.0-18.0); Imm Gran Abs Auto 0.04 X10*3/uL (0.00-0.03); Imm Gran Pct Auto 0.4 % (0.0-0.4); Lymphocytes Absolute Auto 2.2 X10*3/uL (1.2-4.9); Lymphocytes Percent Auto 22.7 % (20-40); Mean Corpuscular HGB Conc 35.7 g/dl (31.0-36.0); Mean Corpuscular Hemoglobin 29.5 pg (27.0-33.0); Mean Corpuscular Volume 82.6 fL (80.0-98.0); Mean Platelet Volume 10.9 fL (9.4-12.4); Monocytes Absolute Auto 0.5 X10*3/uL (0.1-1.2); Neutrophils Absolute Auto 6.8 x10*3/uL (2.0-8.3); Neutrophils Percent Auto 71.4 % (45-73); Platelet Count 274 X10*3/uL (160-400); Red Blood Count 5.63 X10*6/uL (4.60-5.80); Red Cell Distribution Width 11.9 % (11.0-16.0); White Blood Count 9.5 X10*3/uL (4.8-10.8)
[2022-12-20 14:43] LABS: Alanine Aminotransferase 24 U/L (0-40); Albumin Level 4.9 g/dL (3.5-5.0); Alkaline Phosphatase 153 U/L (39-117); Anion Gap 15 (12-20); Aspartate Amino Transferase 20 U/L (5-37); Bilirubin Total 0.8 mg/dL (0.0-1.0); Blood Urea Nitrogen 16 mg/dL (9-16); Calcium 10.1 mg/dL (8.4-10.2); Carbon Dioxide 27 mmol/L (22-29); Chloride 100 mmol/L (96-108); Creatinine Clr Calc Pharmacy 78.7; Estimated Glomerular Filt Rate > 60; Glucose Random 154 mg/dL (60-115); Potassium 4.1 mmol/L (3.3-5.1); Sodium 138 mmol/L (135-145); Total Protein 7.8 g/dL (6.5-8.0)
[2022-12-20] MEDS: Ketorolac Tromethamine 30 MG/ML VIAL IM (14:59)
[2022-12-20 15:05] VITALS: BP 148/97; PULSE 91; RESP 20; TEMP 36.8; O2SAT 99
[2022-12-20] MEDS: 0.9 % Sodium Chloride 1,000 ML 999 ML IV (15:56)
[2022-12-20] MEDS: Acetaminophen 325 MG TABLET 975 MG PO (16:47)
[2022-12-20 17:28] LABS: Appearance Urine Clear; Color Urine Yellow; Glucose Urine UA 100 mg/dL (Negative); Leukocyte Esterase Urine Negative (Negative); Nitrite Urine Negative (Negative); PH 5.5 (5.0-9.0); UMIC TRIGGER UACC YES; Urine Blood Small (1+) (Negative); Urine Ketones 15 mg/dL (Negative); Urine Protein Trace mg/dL (Neg-Trace)
[2022-12-20 17:30] VITALS: BP 144/93; PULSE 99; RESP 20; O2SAT 97
[2022-12-20 17:33] LABS: Bacteria Urine None Seen (None Seen); Hyaline Casts Urine 0-2 /LPF (0-2); RBC Urine >20 /HPF (0-2); Squamous Epithelial Cell Urine 0-2 /HPF (0-2); WBC Urine 0-5 /HPF (0-5)
[2022-12-20 17:40] LABS: Specific Gravity - Urine >= 1.030 (1.005-1.025)
== END 2022-12-20 18:05 | disposition home or self-care (01) ==
PROVIDERS: Nurse Practitioner Family; Emergency Provider Emergency Medicine; PCP Nurse Practitioner Family
DX: N23 Unspecified renal colic (principal); R10.9 Unspecified abdominal pain; R35.0 Frequency of micturition
CPT/HCPCS: 36415; 74176; 80053; 81001; 85025; 96360; 96372; 99284; J1885

== ENCOUNTER → 2023-01-14 14:07 | Outpatient (BNVA) | payer BC, SELFPAY | PROVIDERS: PCP Nurse Practitioner Family; Visit Provider Nurse Practitioner Family | DX: Z13.89 Encounter for screening for other disorder (principal) ==

== ENCOUNTER 2023-02-04 07:16 | Day surgery (SDC) | payer BC, SELFPAY ==
--- NOTE | 2023-02-03 11:01 | HO.ANESPROP2 ---
Documented by User: Kriss Toledo NP 02/03/23 11:02 HPI - Anesthesia Eval Consult details Narrative: 42yo M for Left Cystoscopy, Ureteroroscopy, Retro, Laser,poss stent PMFSH Active Problems Active Problems: All Active Problems (Updated 01/14/23 @ 23:19 by JEFFY Vallejo) Left flank pain (Acute) Left ureteral calculus (Acute) Physical exam (Acute) Desmoid fibromatosis (Acute) Overweight (BMI 25.0-29.9) (Acute) Vitamin D deficiency (Acute) Dyslipidemia (Acute) Diabetes type 2, controlled (Acute) Past Medical History Medical History Diabetes type 2, controlled Dyslipidemia Kidney stones Mass of right elbow Overweight (BMI 25.0-29.9) Vitamin D deficiency Family History Family History Father Diabetes mellitus Mother Diabetes mellitus Brother No problems noted. Sister Diabetes mellitus Sister No problems noted. Sister No problems noted. Sister No problems noted. Sister No problems noted. Sister No problems noted. Surgical History Surgical History Hx of elbow surgery Social History Social History Housing: House Patient Tobacco Use Status: Never used Tobacco e-Cigarette/Vaping Use: Never Used Second Hand Smoke Exposure: No Advance Directives: No Advance Directives Information Provided: Yes service: No Current occupational status: employed Current occupation: [employer] Current occupational exposures/hazards: No Cognitive needs: No Hearing needs: No Vision needs: No Meds Allergies Allergy/AdvReac Type Severity Reaction Status Date / Time morphine [MORPHINE] Allergy Intermediate HIVES Verified 01/14/23 23:23 oxycodone Allergy Hives Verified 01/14/23 23:23 Home Medications Medication Instructions Recorded Confirmed Last Taken Type sorafenib 200 mg tablet mg PO 12/31/22 01/14/23 Unknown History Exam Exam Date and Time: February 03, 2023 1101 Pertinent Lab Results Pertinent Lab Results: Laboratory Tests 12/20/22 12/20/22 14:17 14:17 WBC 9.5 Hgb 16.6 Hct 46.5 Plt Count 274 Sodium 138 Potassium 4.1 Chloride 100 Carbon Dioxide 27 BUN 16 Creatinine 1.17 Assessment and Plan Assessment Anesthesia Assessment: Chart Reviewed Documented by User: Hong Pang MD 02/04/23 07:44 [facility] Past Medical History Medical History Diabetes type 2, controlled Dyslipidemia Kidney stones Mass of right elbow Overweight (BMI 25.0-29.9) Vitamin D deficiency Family History Family History Father Diabetes mellitus Mother Diabetes mellitus Brother No problems noted. Sister Diabetes mellitus Sister No problems noted. Sister No problems noted. Sister No problems noted. Sister No problems noted. Sister No problems noted. Family history of problems with anesthesia: No Surgical History Surgical History Hx of elbow surgery History of Problems with Anesthesia: No Social History Social History Housing: House Patient Tobacco Use Status: Never used Tobacco e-Cigarette/Vaping Use: Never Used Second Hand Smoke Exposure: No Advance Directives: No Advance Directives Information Provided: Yes service: No Current occupational status: employed Current occupation: [employer] Current occupational exposures/hazards: No Cognitive needs: No Hearing needs: No Vision needs: No Meds Allergies Allergy/AdvReac Type Severity Reaction Status Date / Time morphine [MORPHINE] Allergy Intermediate HIVES Verified 01/14/23 23:23 oxycodone Allergy Hives Verified 01/14/23 23:23 Home Medications Medication Instructions Recorded Confirmed Last Taken Type sorafenib 200 mg tablet mg PO 12/31/22 01/14/23 Unknown History Exam Airway Mallampati Class: II TM Dist: >3cm Neck ROM: Full Heart: rrr Lungs: cta Assessment and Plan Assessment Anesthesia Assessment: Anesthesia Plan Discussed Final Anesthetic Review Family History of Problems with Anesthesia: No History of Problems with Anesthesia: No NPO: Yes ASA Class: II Final Preanesthetic Review: No Changes in Pt Med Stat, Meds/Allgs Chart Reviewed, Consent Obtained/Reviewed and Anes Risks/Benef Reviewed Patient Risk: Low Procedure Risk: Low Anesthetic Plan Anesthetic Plan: GA Disposition: Standard PACU
--- NOTE | ~2023-02-04 | FL_ITS ---
EXAMINATION: XR FLUOROSCOPY WITH IMAGES CLINICAL INFORMATION: Urinary tract calculus COMPARISON: CT abdomen and pelvis 12/20/2022 TECHNIQUE: Fluoroscopy Supervised By: Dr. Man. Fluoroscopy Time: 20 seconds. Cumulative Dose: 5.0 mGy. Images: 3. FINDINGS: There is contrast in the distal left ureter. No hydroureter or extravasation. No clearly visible intraluminal filling defect. FL/FL guidance in OR IMPRESSION: Fluoroscopy for urologic procedures.
[2023-02-04 07:59] VITALS: BP 127/87; PULSE 90; RESP 18; TEMP 36.4; O2SAT 98; BMI 26.3
[2023-02-04 08:05] LABS: Glucose, Whole Blood 139 mg/dL (60-115)
[2023-02-04] MEDS: Lactated Ringers 1,000 ML 100 ML IVCONT (08:07)
--- NOTE | 2023-02-04 08:32 | MHC.SHP ---
Pre-Procedural Eval Section A Date of Service: 02/04/23 The patient is an INPATIENT: No The History & Physical has been completed within 30 days and I have reviewed it.: Yes Section B Chief Complaint: Calculus of kidney Allergies: Allergies Allergy/AdvReac Type Severity Reaction Status Date / Time morphine [MORPHINE] Allergy Intermediate HIVES Verified 01/14/23 23:23 oxycodone Allergy Hives Verified 01/14/23 23:23 Plan Diagnosis/Plan: Unchanged I have reviewed the history and physical and performed a pertinent physical examination on my patient. No changes have occurred unless specified. Plan for Cystoscopy, left retrograde, possible ureteroscopy, Risks discussed included but not limited to, Irritative voiding symptoms, bladder spasms, urgency, blood in urine. Time Spent With Patient Time: Total time managing care of this patient today ____ minutes.
--- NOTE | 2023-02-04 09:15 | P.OP_ITS ---
Operative Note Operative Note Date of Service: 02/04/23 Narrative: PreOperative Diagnosis:?? Left ureteral stone, left hydronephrosis Post Operative Diagnosis:?? History of left ureteral stone, left hydronephrosis Procedure: - cystoscopy, left retrograde Findings: Hydronephrosis resolved, ureteral stone likely passed Surgeon:?Dr Collette Man Anesthesia:? General Indications for procedure: 42-year-old male presented to ED for left flank pain CT KUB noted left ureteral stone with hydronephrosis. The patient is here for further evaluation. Procedure: After informed consent was verified the patient was brought to the operating room and placed on the OR table in supine position.? General Anesthesia was administered per protocol.? The patient was placed in lithotomy position, prepped and draped in the usual sterile fashion.? Safety pause time-out and side of surgery confirmed.? Antibiotics confirmed. 2% lidocaine jelly, 10 mL, was passed transurethrally. Attempts to place the 22 [place] [employer] cystoscope met with resistance at the meatus. Saida sounds were used to dilate the meatus starting with a 16 [place] [employer] sound and gradually dilated up to 24 [place] [employer]. The 22 [place] [employer] cystoscope was then innserted transurethrally, the bulbous urethra was within normal limits. The prostatic urethra was nonobstructive. The bladder was visualized.? Both ureteric orifices were in normal position. On fluoroscopy there were calcifications seen along the pelvis suggestive of phleboliths. The? left ureteric orifice was cannulated? and a retrograde examination was performed, there were no filling defects noted, no evidence of left ureteral stone, there is no dilatation of the left renal calyces or evidence of obstruction. The contrast cleared the urinary system. The bladder was emptied.? The rigid cystoscope was removed. ? 2% lidocaine jelly 10 mL, was passed transurethrally. The patient tolerated the procedure well and was brought to the recovery room in stable condition. Complications: None Drains: None
[2023-02-04 09:33] VITALS: BP 104/76; PULSE 97; RESP 10; TEMP 36.4; O2SAT 98
[2023-02-04 09:38] VITALS: BP 101/55; PULSE 88; RESP 12; O2SAT 95
[2023-02-04 09:43] VITALS: BP 102/61; PULSE 89; RESP 16; O2SAT 96
[2023-02-04] MEDS: Phenazopyridine HCL 200 MG TABLET PO (09:45)
[2023-02-04 09:48] VITALS: BP 110/63; PULSE 84; RESP 16; O2SAT 97
[2023-02-04 10:03] VITALS: BP 125/87; PULSE 84; RESP 18; TEMP 36.4; O2SAT 97
== END 2023-02-04 10:35 | disposition home or self-care (01) ==
PROVIDERS: PCP Nurse Practitioner Family; Visit Provider Urology
PROC: (CPT 52000; principal; 2023-02-04 09:00)
DX: N13.2 Hydronephrosis with renal and ureteral calculous obstruction (principal); E11.9 Type 2 diabetes mellitus without complications
CPT/HCPCS: 52000; 82947; C1758; C1769; J0690; J1100; J1885; J2405; Q9967

== ENCOUNTER 2023-04-24 09:21 | Outpatient (REF) | payer BC, SELFPAY ==
[2023-04-24 11:20] LABS: MANUAL DIFF FLAG NO
[2023-04-24 11:26] LABS: Appearance Urine Clear; Color Urine Yellow; Glucose Urine UA Negative (Negative); Leukocyte Esterase Urine Negative (Negative); Nitrite Urine Negative (Negative); Urine Blood Negative (Negative); Urine Ketones Negative (Negative); Urine Protein Trace mg/dL (Neg-Trace)
[2023-04-24 11:31] LABS: Basophils Percent Auto 0.5 % (0-2); Eosinophils Percent Auto 0.2 % (0-4); Hematocrit 46.1 % (42.0-52.0); Hemoglobin 16.3 g/dl (14.0-18.0); Imm Gran Abs Auto 0.02 X10*3/uL (0.00-0.03); Imm Gran Pct Auto 0.5 % (0.0-0.4); Lymphocytes Absolute Auto 1.9 X10*3/uL (1.2-4.9); Lymphocytes Percent Auto 42.3 % (20-40); Mean Corpuscular HGB Conc 35.4 g/dl (31.0-36.0); Mean Corpuscular Hemoglobin 30.4 pg (27.0-33.0); Mean Corpuscular Volume 85.8 fL (80.0-98.0); Mean Platelet Volume 11.9 fL (9.4-12.4); Monocytes Absolute Auto 0.4 X10*3/uL (0.1-1.2); Monocytes Percent Auto 8.4 % (2-11); Neutrophils Absolute Auto 2.1 x10*3/uL (2.0-8.3); Neutrophils Percent Auto 48.1 % (45-73); Platelet Count 218 X10*3/uL (160-400); Red Blood Count 5.37 X10*6/uL (4.60-5.80); Red Cell Distribution Width 12.6 % (11.0-16.0); White Blood Count 4.4 X10*3/uL (4.8-10.8)
[2023-04-24 12:04] LABS: Alanine Aminotransferase 37 U/L (0-40); Albumin Level 4.8 g/dL (3.5-5.0); Alkaline Phosphatase 107 U/L (39-117); Anion Gap 12 (12-20); Aspartate Amino Transferase 26 U/L (5-37); Bilirubin Total 1.1 mg/dL (0.0-1.0); Blood Urea Nitrogen 9 mg/dL (9-16); Calcium 9.8 mg/dL (8.4-10.2); Carbon Dioxide 31 mmol/L (22-29); Chloride 106 mmol/L (96-108); Cholesterol 170 mg/dL; Estimated Glomerular Filt Rate > 60; Glucose Fasting 124 mg/dL (60-99); HDL Cholesterol 43 mg/dL; LDL Cholesterol Calculated 115 mg/dl; Sodium 144 mmol/L (135-145); TSH reflex Free T4 1.03 uIU/mL (0.32-4.0); Total Protein 7.8 g/dL (6.5-8.0); Triglycerides 64 mg/dL
[2023-04-24 12:52] LABS: Creatinine Urine 178.76 mg/dL; Microalbum/Creatinine Ratio Ur 25.7 ug/mg cr
== END 2023-04-24 09:22 | disposition home or self-care (01) ==
LOC: HO.HMGCLDS 09:21
PROVIDERS: PCP Nurse Practitioner Family; Visit Provider Nurse Practitioner Family
DX: Z00.00 Encounter for general adult medical examination without abnormal findings (principal); E11.9 Type 2 diabetes mellitus without complications
CPT/HCPCS: 36415; 80053; 80061; 81003; 82043; 84443; 85025

== ENCOUNTER 2024-03-16 16:29 | Outpatient (REF) | payer BC, SELFPAY ==
--- NOTE | ~2024-03-16 | MR_ITS ---
EXAMINATION: MR ELBOW WITHOUT CONTRAST, RIGHT CLINICAL INFORMATION: Desmoid fibromatosis. Lump/mass. COMPARISON: Multiple priors, most recent right elbow MRI dated 04/23/2022. TECHNIQUE: MRI of the elbow was performed using routine sequences on a high-field scanner. FINDINGS: ULNAR COLLATERAL LIGAMENT: Intact. COMMON FLEXOR TENDON: Intact. RADIAL COLLATERAL LIGAMENT: Intact. COMMON EXTENSOR TENDON: Redemonstration of mild thickening and increased intrasubstance T2 signal within the common extensor tendon, consistent with mild tendinosis and not significantly changed. No measurable tear. BICEPS/TRICEPS TENDON: Intact. ARTICULAR CARTILAGE/BONE: No acute fracture or dislocation. No marrow edema or evidence of acute osseous injury. Intact articular cartilage. No osteochondral lesion. ULNAR NERVE: Intact. JOINT FLUID/SOFT TISSUES: Redemonstrated along the posterolateral aspect of the elbow at the level of the distal humerus is a lobulated, peripherally low T1/low T2 signal and centrally high T1/isointense T2 signal focus. This demonstrates increase in peripheral low T1/low T2 signal when compared to the prior examination. Overall this measures approximately 2.3 x 5.9 x 7.7 cm in greatest dimension (previously 2.3 x 6.3 x 8.1 cm) and appear slightly decreased in size when compared to the prior examination. No new soft tissue mass or fluid collection. MR/MR elbow RT wo con IMPRESSION: 1. Redemonstration of a lobulated, peripherally low T1/low T2 signal lesion along the posterolateral aspect of the elbow, slightly decreased in size when compared to the prior examination. This demonstrates increased peripheral low T1/low T2 signal when compared to the prior examination. No new soft tissue mass or fluid collection. 2. Mild common extensor tendinosis, unchanged.
== END 2024-03-16 16:30 | disposition home or self-care (01) ==
LOC: HO.MRI 16:29
PROVIDERS: PCP Nurse Practitioner Family; Visit Provider Internal Medicine Hematology & Oncology
DX: D48.115 Desmoid tumor of upper extremity and shoulder girdle (principal)
CPT/HCPCS: 73221

== ENCOUNTER 2024-03-24 08:55 | Outpatient (AMB) | payer BC, SELFPAY ==
--- NOTE | 2024-03-24 08:57 | MHC.PC.OV ---
Vital Signs 03/24/24 09:00 Height 5 ft 7 in Weight 173 lb 6 oz BMI 27.2 BP 118/68 Blood Pressure Location Rt brachial Position Sitting Pulse 96 Pulse Source Pulse Oximeter Pulse Oximetry (%) 96 Oxygen Delivery Method Room Air Intake Visit Reasons: follow up/ DM Intake Note: Patient here for diabetes f/u. pt does not often check sugars at home. Allergies morphine [MORPHINE] Allergy (Intermediate, Verified 03/24/24 09:01) HIVES oxycodone Allergy (Verified 03/24/24 09:01) Hives Medication List - Last Reconciled 03/24/24 by JEFFY Garcia atorvastatin 10 mg PO DAILY 30 days blood sugar diagnostic ([employer] Verio test strips) Once a day blood-glucose meter ([employer] Ultra2 Meter) tid testing cholecalciferol (vitamin D3) 50 mcg PO DAILY lisinopril 2.5 mg PO DAILY metformin ER 1,000 mg (2 x 500 mg) PO BID OneTouch UltraSoft Lancets (lancets) once a day NS sorafenib mg PO Tobacco use date assessed: 03/24/24 Dental Screening Dental Screen Date: 03/24/24 Did you have a dental visit in the last 12 months?: Yes Did you have a dental problem in the last 6 months where you did not have access to dental care?: No Was dental information given to patient?: Patient has dentist HPI follow up/ DM HPI Details Pt is a diabetic, on an DEMETRIA and a statin. A1C in office today is 7.3. Due for microalbumin in the near future, will order. Denies polyuria, polydipsia, and neuropathy. Pt denies any signs and symptoms of hypoglycemia and does know how to correct it. Will start jardiance 10mg. Pt understands to monitor for yeast infections. Pt reports that his glucometer is not working. Will send a new one. Pt will schedule his own eye exam. Pt reports erythema and itching to his left foot between toes 4 and 5. Will send ketoconazole. [facility] Medical History Diabetes type 2, controlled Dyslipidemia Kidney stones Mass of right elbow Overweight (BMI 25.0-29.9) Vitamin D deficiency Surgical History Hx of elbow surgery Family History Father Diabetes mellitus Mother Diabetes mellitus Brother No problems noted. Sister Diabetes mellitus Sister No problems noted. Sister No problems noted. Sister No problems noted. Sister No problems noted. Sister No problems noted. Social History Housing: House Patient Tobacco Use Status: Never used Tobacco e-Cigarette/Vaping Use: Never Used Second Hand Smoke Exposure: No service: No Current occupational status: employed Current occupation: [employer] Current occupational exposures/hazards: No Cognitive needs: No Hearing needs: No Vision needs: No Questionnaire Thrive Questionnaire Date Thrive assessed: 12/31/22 AUDIT C Alcohol Use Questionnaire (AUDIT-C) 1. How often do you have a drink containing alcohol?: Never 3. How often do you have six or more drinks on one occasion?: Never Total Score: 0 Score Reviewed/Action Taken: No SAMMY-7 AMB Questionnaire SAMMY-7 Date SAMMY - 7 assessed: 12/31/22 Source: Developed by Drs. Zack Verde, Maggi Lechuga, Giacomo Rg and colleagues, with an educational carla from [employer]. Review of Systems Const Reports as per HPI Physical exam (Primary Care) Vital Signs: Last Vital Signs Pulse 96 03/24/24 09:00 BP 118/68 03/24/24 09:00 Pulse Ox 96 03/24/24 09:00 Oxygen Delivery Method Room Air 03/24/24 09:00 BMI result Body Mass Index 27.2 Tobacco/Smoking Status: Tobacco use Status Tobacco use date assessed 03/24/24 03/24/24 09:05 Patient Tobacco Use Status Never used Tobacco 03/24/24 08:58 e-Cigarette/Vaping Use Never Used 03/24/24 08:58 Thrive Assessment: Date of Thrive Assessment Date Thrive assessed 12/31/22 03/24/24 08:58 Const General: cooperative Orientation/consciousness: patient oriented x3 Resp Effort & Inspection: normal respiratory effort Auscultation: clear to auscultation bilaterally Cardio Rate: regular rate Rhythm: regular rhythm Heart sounds: S1 normal heart sound present and S2 normal heart sound present Neuro General: patient oriented x3 Extrem Other: bilat feet: + sensation with use of monofilament, feet intact, left foot between toes 4 and 5 with faint erythema with whitish excoriation (tinea) Psych Appearance: grossly normal Mental Status: mental status grossly normal Speech and movement: Normal speech and movement present Affect: normal affect Attitude: cooperative Thought process: Normal thought process present Thought content: Normal thought content present Insight: Good insight present (Psych) Judgement: Good judgement present (Psych) Results AMB Hemoglobin A1c AMB Hemoglobin A1c 7.3 % Last Edit by SAMMY Eckert on 03/24/24 09:20 Assessment and Plan Assessment & Plan (1) Diabetes type 2, controlled: Code(s): E11.9 - Type 2 diabetes mellitus without complications Plan: Labs ordered, sending new meter Plan The patient agreed to the use of a medical detail representative for this encounter. Scribed for JEFFY Griffin by Nena Mae medical detail representative, on 03/24/2024 at 09:05 EST. Orders: Orders Complete Blood Count Auto Diff Today E11.9 - Type 2 diabetes mellitus without complications Comprehensive [place]. Panel Fast Today E11.9 - Type 2 diabetes mellitus without complications Lipid Panel Today E11.9 - Type 2 diabetes mellitus without complications Microalbumin, Random (w Creat) Today E11.9 - Type 2 diabetes mellitus without complications TSH reflex Free T4 Today E11.9 - Type 2 diabetes mellitus without complications UA CC w/rflx Micro + Cult Today E11.9 - Type 2 diabetes mellitus without complications AMB Hemoglobin A1c Today E11.9 - Type 2 diabetes mellitus without complications Medications: New blood-glucose meter (OneTouch Ultra2 Meter) tid testing 1 ea 0RF diabetes empagliflozin (Jardiance) 10 mg PO DAILY 90 tabs 0RF ketoconazole 2% 1 appl topical DAILY 60 grams 0RF Coding Level of Care Code Est Pt Level 3 (39657) Diagnoses Diabetes type 2, controlled E11.9
[2024-03-24 09:00] VITALS: BP 118/68; PULSE 96; O2SAT 96; BMI 27.2
== END 2024-03-24 09:20 | disposition home or self-care (01) ==
PROVIDERS: PCP Nurse Practitioner Family; Visit Provider Nurse Practitioner Family
DX: E11.9 Type 2 diabetes mellitus without complications (principal)
CPT/HCPCS: 83036; 99213

== ENCOUNTER 2024-11-17 07:56 | Outpatient (REF) | payer BC, SELFPAY ==
[2024-11-17 10:17] LABS: MANUAL DIFF FLAG NO
[2024-11-17 10:23] LABS: Appearance Urine Clear; Color Urine Yellow; Glucose Urine UA >=1000 mg/dL (Negative); Leukocyte Esterase Urine Negative (Negative); Nitrite Urine Negative (Negative); UMIC TRIGGER UACC YES; Urine Blood Negative (Negative); Urine Ketones Negative (Negative); Urine Protein Negative (Neg-Trace)
[2024-11-17 10:30] LABS: Bacteria Urine None Seen (None Seen); Hyaline Casts Urine 0-2 /LPF (0-2); RBC Urine 0-2 /HPF (0-2); Squamous Epithelial Cell Urine 0-2 /HPF (0-2); WBC Urine 0-5 /HPF (0-5)
[2024-11-17 10:32] LABS: Basophils Percent Auto 0.4 % (0-2); Eosinophils Percent Auto 0.7 % (0-4); Hematocrit 43.1 % (42.0-52.0); Hemoglobin 15.2 g/dl (14.0-18.0); Imm Gran Abs Auto 0.04 X10*3/uL (0.00-0.03); Imm Gran Pct Auto 0.9 % (0.0-0.4); Lymphocytes Absolute Auto 1.6 X10*3/uL (1.2-4.9); Lymphocytes Percent Auto 35.8 % (20-40); Mean Corpuscular HGB Conc 35.3 g/dl (31.0-36.0); Mean Corpuscular Hemoglobin 30.4 pg (27.0-33.0); Mean Corpuscular Volume 86.2 fL (80.0-98.0); Monocytes Absolute Auto 0.4 X10*3/uL (0.1-1.2); Monocytes Percent Auto 7.7 % (2-11); Neutrophils Absolute Auto 2.5 x10*3/uL (2.0-8.3); Neutrophils Percent Auto 54.5 % (45-73); Platelet Count 252 X10*3/uL (160-400); Red Cell Distribution Width 12.4 % (11.0-16.0); White Blood Count 4.5 X10*3/uL (4.8-10.8)
[2024-11-17 10:46] LABS: Alanine Aminotransferase 34 U/L (0-40); Albumin Level 4.5 g/dL (3.5-5.0); Alkaline Phosphatase 119 U/L (39-117); Anion Gap 9 (12-20); Aspartate Amino Transferase 24 U/L (5-37); Bilirubin Total 0.6 mg/dL (0.0-1.0); Blood Urea Nitrogen 16 mg/dL (9-16); Calcium 8.9 mg/dL (8.4-10.2); Carbon Dioxide 28 mmol/L (22-29); Chloride 105 mmol/L (96-108); Cholesterol 167 mg/dL (<200); Estimated Glomerular Filt Rate > 60; Glucose Fasting 152 mg/dL (60-99); HDL Cholesterol 45 mg/dL (>40); LDL Cholesterol Calculated 108 mg/dL (<100); Sodium 138 mmol/L (135-145); Total Protein 7.3 g/dL (6.5-8.0); Triglycerides 72 mg/dL (<150)
[2024-11-17 11:04] LABS: TSH reflex Free T4 1.13 uIU/mL (0.32-4.0)
[2024-11-17 11:07] LABS: Creatinine Urine 73.49 mg/dL; Microalbum/Creatinine Ratio Ur 9.5 ug/mg cr (<30)
== END 2024-11-17 07:57 | disposition home or self-care (01) ==
LOC: HO.HMGCLDS 07:56
PROVIDERS: PCP Nurse Practitioner Family; Visit Provider Nurse Practitioner Family
DX: E11.9 Type 2 diabetes mellitus without complications (principal)
CPT/HCPCS: 36415; 80053; 80061; 81001; 82043; 82570; 83036; 84443; 85025

== ENCOUNTER 2024-11-17 09:55 | Outpatient (AMB) | payer BC, SELFPAY ==
[2024-11-17 10:02] VITALS: BP 120/82; PULSE 92; O2SAT 97; BMI 27.2
--- NOTE | 2024-11-17 10:02 | A.OFFPC_ITS ---
Vital Signs 11/17/24 10:02 Height 5 ft 7 in Weight 174 lb BMI 27.2 BP 120/82 Blood Pressure Location Rt brachial Position Sitting Pulse 92 Pulse Source Pulse Oximeter Pulse Oximetry (%) 97 Oxygen Delivery Method Room Air Intake Visit Reasons: 3 mon f/u DM Allergies morphine [MORPHINE] Allergy (Intermediate, Verified 11/17/24 10:03) HIVES oxycodone Allergy (Verified 11/17/24 10:03) Hives Medication List - Last Reconciled 11/17/24 by JEFFY Garcia atorvastatin 10 mg PO DAILY 30 days blood sugar diagnostic ([employer] Verio test strips) Once a day blood-glucose meter ([employer]Touch Ultra2 Meter) tid testing cholecalciferol (vitamin D3) 50 mcg PO DAILY empagliflozin 25 mg PO DAILY ketoconazole 2% 1 appl topical DAILY lisinopril 2.5 mg PO DAILY metformin ER 1,000 mg (2 x 500 mg) PO BID OneTouch UltraSoft Lancets (lancets) once a day NS sorafenib mg PO Tobacco use date assessed: 03/24/24 Dental Screening Dental Screen Date: 03/24/24 HPI 3 mon f/u DM HPI Details Chief Complaint I am here for diabetes management. History of Present Illness The patient is a 44-year-old male presenting with Type 2 Diabetes Mellitus. The patient's blood glucose levels have been fluctuating, with readings around 159 mg/dL, sometimes dropping to 140 mg/dL depending on dietary intake. The patient's hemoglobin A1c is 7.8%, which is slightly above the target of below 7%. The patient reports compliance with metformin and statin therapy but had a brief lapse in medication due to lack of refills. The patient does not experience numbness or tingling in the feet, and a recent eye exam indicated no diabetic retinopathy. Social History - Employed, details about nature of job not specified. - Reports waking early and busy work jade edule before eating first meal. - Dietary habits and nutritional intake not explicitly discussed beyond timing of meals. Health Maintenance - Recent eye exam within one month showi ng no diabetic retinopathy. - Has not received the current year's fl u or pneumonia vaccinations. - Active medication management includes lisinopril, metformin, a statin, and Jardiance. Review of Systems - Neurological: Denies numbness or tingl ing in feet. - Dermatological: Reports presence of a cyst on the scalp. Physical Exam General: Cooperative, healthy appearing, comfortable, no acute distress and well developed Orientation: Patient oriented x3 Limitations: No limitations Head: Normal to inspection, but a cyst noted right occipital Ears: Hearing grossly normal bilaterally Nose: Normal external nose present Face and sinus: Normal facial exam Eyes: Appearance normal, both eyes and all related structures, but patient requires glasses for close vision Neck: Normal visual inspection and Yes full ROM Respiratory: Normal respiratory effort and able to speak in complete sentences. Clear to auscultation bilaterally Cardiovascular: Regular rate and rhythm. Normal S1 and S2 GI: Normal to inspection. Soft to palpation and nontender Skin: No rashes or lesions noted, but a cyst noted on the head Neuro: Patient oriented x3 Extremities: Normal to inspection, good sensation in feet, feet look intact Results - Labs: Hemoglobin A1c 7.8%. Plan - Continue monitoring blood glucose leve ls; aim for A1c below 7%. - Increase Jardiance dosage for Type 2 D iabetes Mellitus management. - Update prescription for metformin to e nsure continuous supply. - Schedule surgical consultation for rem oval of the scalp cyst if it becomes bothersome. - Discuss diabetic foot care and the imp ortance of regular eye exams. - Address medication adherence strategie s to avoid future lapses. - Discuss possibility of starting GLP-1 agonists if Jardiance modification is ineffective. - Continue current antihypertensive and lipid-lowering therapy. Patient was informed and verbally consented to the use of an ambient scribe for clinic note documentation during this visit. Discussion Notes I discussed with the patient the current status of his diabetes management, emphasizing the importance of maintaining an A1c below 7% to reduce the risk of complications. We reviewed his current medication regimen and identified a brief interruption in metformin, which may have contributed to the higher A1c. I recommended increasing the Jardiance dosage as a preferred management strategy and advised against starting GLP-1 agonist injections due to potential side effects and because Jardiance adjustments could suffice. We talked about regular eye exams and the importance of maintaining kidney function with lisinopril. Although the patient has a scalp cyst, it is non-urgent and can be managed electively. I addressed the potential for urinary tract infections/s/s of balanitis explained to pt with use of Jardiance and instructed the patient to be vigilant for symptoms. We agreed to monitor blood glucose levels closely and reconvene to assess the impact of the medication adjustments. Patient Instructions - Continue taking metformin, lisinopril, and statin as prescribed. - Follow up with the pharmacy to ensure timely refills of medications. - Monitor blood glucose levels regularly and maintain a log for review. - Schedule a routine eye exam annually f or diabetic retinopathy screening. - Be attentive to symptoms of urinary tr act infections; report any occurrences promptly. - Consult for cyst removal if it becomes painful or enlarges. - Consider annual flu vaccination for pr eventive health. declined this and pneumo vaccine - Stay hydrated and maintain a balanced diet, considering work schedule constraints. [facility] Medical History Kidney stones Mass of right elbow Overweight (BMI 25.0-29.9) Vitamin D deficiency Dyslipidemia Diabetes type 2, controlled Surgical History Hx of elbow surgery Family History Father Diabetes mellitus Mother Diabetes mellitus Brother No problems noted. Sister Diabetes mellitus Sister No problems noted. Sister No problems noted. Sister No problems noted. Sister No problems noted. Sister No problems noted. 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 1. Little interest or pleasure in doing things: nearly every day 2. Feeling down, depressed, or hopeless: not at all 3. Trouble falling or staying asleep, or sleeping too much: not at all 4. Feeling tired or having little energy: not at all 5. Poor appetite or overeating: not at all 6. Feeling bad about yourself - or that you are a failure or have let yourself or your family down: not at all 7. Trouble concentrating on things, such as reading the newspaper or watching television: not at all 8. Moving or speaking so slowly that other people could have noticed. Or the opposite - being so fidgety or restless that you have been moving around a lot more than usual: not at all 9. Thoughts that you would be better off or of hurting yourself in some way: not at all Total score: 3 Source: Developed by Drs. Zack Verde, Maggi Lechuga, Giacomo Rg and colleagues, with an educational carla from [employer]. Thrive Questionnaire Date Thrive assessed: 12/31/22 I am a: Patient What is your living situation today?: I have a steady place to live Within the past 12 months, did the food you bought not last and you didn't have the money to get more?: Never true Within the past 12 months, did you worry whether your food would run out before you got money to buy more?: Never true Do you have trouble paying for medicines?: No Do you have trouble getting transportation to medical appointments?: No Do you have trouble paying your heating and electricity bill?: No Do you have trouble taking care of your child, family member or friend?: No Do you have trouble with day-to-day activities such as bathing, preparing meals, shopping, managing finances, etc.?: No Are you currently unemployed and looking for a job?: No Are you interested in more education?: No Please select the resources that you would like help with: None Currently or been in a relationship where the following occur: No concerns reported THRIVE Score: 0 AUDIT C Alcohol Use Questionnaire (AUDIT-C) 1. How often do you have a drink containing alcohol?: Never Total Score: 0 SAMMY-7 AMB Questionnaire SAMMY-7 Date SAMMY - 7 assessed: 12/31/22 Feeling nervous, anxious, or on edge: 0 = Not at all Not being able to stop or control worryin = Not at all Worrying too much about different things: 0 = Not at all Trouble relaxin = Not at all Being so restless that it is hard to sit still: 0 = Not at all Becoming easily annoyed or irritable: 0 = Not at all Feeling afraid as if something awful might happen: 0 = Not at all Total SAMMY-7 score (0-4 normal; 5-9 mild; 10-14 moderate; 15-21 severe): 0 Source: Developed by Drs. Zack Verde, Maggi Lechuga, Giacomo Rg and colleagues, with an educational carla from [employer]. Physical exam (Primary Care) Vital Signs: Last Vital Signs Pulse 92 11/17/24 10:02 BP 120/82 11/17/24 10:02 Pulse Ox 97 11/17/24 10:02 Oxygen Delivery Method Room Air 11/17/24 10:02 BMI result Body Mass Index 27.2 Tobacco/Smoking Status: Tobacco use Status Tobacco use date assessed 03/24/24 11/17/24 10:03 Patient Tobacco Use Status Never used Tobacco 11/17/24 10:03 e-Cigarette/Vaping Use Never Used 11/17/24 10:03 PHQ-9: PHQ-9 Score PHQ-9: Total score 3 11/17/24 10:03 Thrive Assessment: Date of Thrive Assessment Date Thrive assessed 12/31/22 11/17/24 10:03 Currently or been in a relationship where the following occur: No concerns reported Coding Level of Care Code Est Pt Level 3 (56515) Diagnoses Screening for colon cancer Z12.11 Assessment & Plan Assessment & Plan (1) Screening for colon cancer: Code(s): Z12.11 - Encounter for screening for malignant neoplasm of colon Category: Medical Plan . Orders: Referrals Gastroenterology Referral Z12.11 - Encounter for screening for malignant neoplasm of colon Medications: Changed From empagliflozin (Jardiance) 10 mg PO DAILY 90 tabs 0RF To empagliflozin 25 mg PO DAILY 90 tabs 0RF Refilled metformin ER 1,000 mg (2 x 500 mg) PO BID 360 tabs 1RF E11.9 - Type 2 diabetes mellitus without complications
== END 2024-11-17 10:26 | disposition home or self-care (01) ==
PROVIDERS: PCP Nurse Practitioner Family; Visit Provider Nurse Practitioner Family
DX: Z12.11 Encounter for screening for malignant neoplasm of colon (principal); Z13.9 Encounter for screening, unspecified

== ENCOUNTER 2025-03-23 14:02 | Outpatient (AMB) | payer BC, SELFPAY ==
[2025-03-23 14:08] VITALS: BP 116/72; PULSE 102; RESP 18; TEMP 36.7; O2SAT 96; BMI 26.8
--- NOTE | 2025-03-23 14:08 | A.OFFPC_ITS ---
Vital Signs 03/23/25 14:08 Height 5 ft 7 in Weight 171 lb 4 oz BMI 26.8 BP 116/72 Blood Pressure Location Rt brachial Position Sitting Respiration 18 Pulse 102 H Pulse Source Pulse Oximeter Temp 98.1 F Temp Source Oral Pulse Oximetry (%) 96 Oxygen Delivery Method Room Air Intake Visit Reasons: 4 months f/up Allergies morphine [MORPHINE] Allergy (Intermediate, Verified 03/23/25 14:51) HIVES oxycodone Allergy (Verified 03/23/25 14:51) Hives Medication List - Last Reconciled 03/23/25 by LEOPOLDO Garcia- atorvastatin 10 mg PO DAILY 30 days blood sugar diagnostic ([employer] Verio test strips) Once a day blood-glucose meter ([employer] Ultra2 Meter) tid testing cholecalciferol (vitamin D3) 50 mcg PO DAILY empagliflozin 25 mg PO DAILY ketoconazole 2% 1 appl topical DAILY lisinopril 2.5 mg PO DAILY metformin ER 1,000 mg (2 x 500 mg) PO BID OneTouch UltraSoft Lancets (lancets) once a day NS sorafenib mg PO Tobacco use date assessed: 03/24/24 Dental Screening Dental Screen Date: 03/23/25 Did you have a dental visit in the last 12 months?: Yes Did you have a dental problem in the last 6 months where you did not have access to dental care?: No Was dental information given to patient?: Patient has dentist HPI 4 months f/up HPI Details Chief Complaint Routine follow-up for diabetes management. History of Present Illness The patient is a 44-year-old male presenting for a routine follow-up regarding his diabetes management. His reported fasting blood glucose levels are often well-controlled in the 120s range, though dietary influences can cause an increase to the 150s in the evening. Important to note, the patient denies any neuropathic symptoms, polyuria, or polydipsia, which are common in the broader diabetes spectrum. However, a routine A1c evaluation is pending, essential for comprehensive diabetes management. Previous laboratory assessments, including microalbumin, have returned normal results, indicating adequate renal function. Social History Health Maintenance - Fasting blood glucose typically in the 120s; occasionally rises to 150s based on diet. - Microalbumin test up to date and withi n normal limits. - Scheduled hemoglobin A1c for monitorin diabetes management. Review of Systems - Endocrine: Denies neuropathy, polyuria , polydipsia. denies any cp, sob, n/v Physical Exam General: Cooperative, healthy appearing, comfortable, no acute distress and well developed Orientation: Patient oriented x3 Limitations: No limitations Head: Normal to inspection Ears: Hearing grossly normal bilaterally Nose: Normal external nose present Face and sinus: Normal facial exam Eyes: Appearance normal, both eyes and all related structures Neck: Normal visual inspection and Yes full ROM Respiratory: Normal respiratory effort and able to speak in complete sentences. Clear to auscultation bilaterally Cardiovascular: Regular rate and rhythm. Normal S1 and S2 GI: Normal to inspection. Soft to palpation and nontender Skin: No rashes or lesions noted Neuro: Patient oriented x3 Extremities: Normal to inspection Results - Labs: Microalbumin within normal limit s. Plan Management of diabetes will continue to focus on monitoring fasting blood glucose and dietary influences. An upcoming hemoglobin A1c test will assess long-term glucose control. Adjustments to medications will be considered based on these findings, particularly if variations in blood glucose are observed. Discussion Notes I discussed with the patient the significance of maintaining stable blood glucose levels and the influence of diet on these levels. We talked about the importance of the upcoming A1c test to evaluate glycemic control over time and its role in shaping future treatment strategies. We agreed that lab results, including microalbumin levels, indicate good current diabetes control, and any medication adjustments will be made in response to ongoing monitoring results. Patient Instructions - Continue monitoring blood glucose leve ls daily, noting any dietary impacts. - Schedule and complete hemoglobin A1c t est as planned. - Report any symptoms of neuropathy, inc reased thirst, or urination. - Follow a consistent diet to maintain b lood glucose stability. [facility] Medical History Kidney stones Mass of right elbow Overweight (BMI 25.0-29.9) Vitamin D deficiency Dyslipidemia Diabetes type 2, controlled Surgical History Hx of elbow surgery Family History Father Diabetes mellitus Mother Diabetes mellitus Brother No problems noted. Sister Diabetes mellitus Sister No problems noted. Sister No problems noted. Sister No problems noted. Sister No problems noted. Sister No problems noted. 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 1. Little interest or pleasure in doing things: nearly every day 2. Feeling down, depressed, or hopeless: not at all 3. Trouble falling or staying asleep, or sleeping too much: not at all 4. Feeling tired or having little energy: not at all 5. Poor appetite or overeating: not at all 6. Feeling bad about yourself - or that you are a failure or have let yourself or your family down: not at all 7. Trouble concentrating on things, such as reading the newspaper or watching television: not at all 8. Moving or speaking so slowly that other people could have noticed. Or the opposite - being so fidgety or restless that you have been moving around a lot more than usual: not at all 9. Thoughts that you would be better off or of hurting yourself in some way: not at all Total score: 3 Depression Screening Interpretation: Negative Depression Screening Done: Yes 10484 - PHQ-9 Billing: Yes Source: Developed by Drs. Zack Verde, Maggi Lechuga, Giacomo Rg and colleagues, with an educational carla from [email or web address]. Thrive Questionnaire Date Thrive assessed: 12/31/22 I am a: Patient What is your living situation today?: I have a steady place to live Within the past 12 months, did the food you bought not last and you didn't have the money to get more?: Never true Within the past 12 months, did you worry whether your food would run out before you got money to buy more?: Never true Do you have trouble paying for medicines?: No Do you have trouble getting transportation to medical appointments?: No Do you have trouble paying your heating and electricity bill?: No Do you have trouble taking care of your child, family member or friend?: No Do you have trouble with day-to-day activities such as bathing, preparing meals, shopping, managing finances, etc.?: No Are you currently unemployed and looking for a job?: No Are you interested in more education?: No Please select the resources that you would like help with: None Currently or been in a relationship where the following occur: No concerns reported THRIVE Score: 0 AUDIT C Alcohol Use Questionnaire (AUDIT-C) 1. How often do you have a drink containing alcohol?: Never Total Score: 0 SAMMY-7 AMB Questionnaire SAMMY-7 Date SAMMY - 7 assessed: 12/31/22 Feeling nervous, anxious, or on edge: 0 = Not at all Not being able to stop or control worryin = Not at all Worrying too much about different things: 0 = Not at all Trouble relaxin = Not at all Being so restless that it is hard to sit still: 0 = Not at all Becoming easily annoyed or irritable: 0 = Not at all Feeling afraid as if something awful might happen: 0 = Not at all Total SAMMY-7 score (0-4 normal; 5-9 mild; 10-14 moderate; 15-21 severe): 0 Source: Developed by Drs. Zack Verde, Maggi Lechuga, Giacomo Rg and colleagues, with an educational carla from [email or web address]. SAMMY-7 Assessment Billing SAMMY-7 Assessment Tool: SAMMY-7 Assessment 10497 Physical exam (Primary Care) Vital Signs: Last Vital Signs Temp 98.1 F 03/23/25 14:08 Pulse 102 H 03/23/25 14:08 Resp 18 03/23/25 14:08 BP 116/72 03/23/25 14:08 Pulse Ox 96 03/23/25 14:08 Oxygen Delivery Method Room Air 03/23/25 14:08 BMI result Body Mass Index 26.8 Tobacco/Smoking Status: Tobacco use Status Tobacco use date assessed 03/24/24 03/23/25 14:09 Patient Tobacco Use Status Never used Tobacco 03/23/25 14:09 e-Cigarette/Vaping Use Never Used 03/23/25 14:09 PHQ-9: PHQ-9 Score PHQ-9: Total score 3 03/23/25 14:15 Depression Screening Interpretation: Negative Thrive Assessment: Date of Thrive Assessment Date Thrive assessed 12/31/22 03/23/25 14:09 Currently or been in a relationship where the following occur: No concerns reported Coding Level of Care Code Est Pt Level 3 (31322) Diagnoses Diabetes type 2, controlled E11.9 Additional Codes PHQ-9 - 91596 - PHQ-9 Billing: Yes ([id number]) SAMMY-7 Assessment Billing - SAMMY-7 Assessment Tool: SAMMY-7 Assessment 87534 ([id number]) Assessment & Plan Assessment & Plan (1) Diabetes type 2, controlled: Code(s): E11.9 - Type 2 diabetes mellitus without complications Category: Medical Plan . Orders: Orders Complete Blood Count Auto Diff Today E11.9 - Type 2 diabetes mellitus without complications TSH reflex Free T4 Today E11.9 - Type 2 diabetes mellitus without complications Hemoglobin A1c Today E11.9 - Type 2 diabetes mellitus without complications Comprehensive [place]. Panel Fast Today E11.9 - Type 2 diabetes mellitus without complications UA CC w/rflx Micro + Cult Today E11.9 - Type 2 diabetes mellitus without complications Lipid Panel Today E11.9 - Type 2 diabetes mellitus without complications
--- OUTSIDE RECORDS SUMMARY | 2025-03-23 16:53 | XMS_ITS | Clinical Summary ---
Author Organization [facility] Facility Address [address] [place] [id number] Care Team Providers Care Cell Coverer Name Role Phone Unavailable Primary Care Provider Unavailabl e Social History Tobacco Use Types Packs/Day Years Used Date Smoking Tobacco: Never Assessed Sex and Gender Information Value Date Recorded Sex Assigned at Not on file Legal Sex Male 4:42 PM EST Gender Identity Not on file Sexual Orientation Not on file Plan of Treatment Health Maintenance Due Date Last Done Comments Hepatitis B Vaccine (1 of 3 - 19+ 3-dose series) 1998 Influenza Vaccine (Season Ended) 2025 Pneumococcal Vaccine: Peds ( 0 to 5 Years) and At-Risk Patients (6 to 49 Years) Aged Out No longer eligible b ased on patient's age to complete this topic
--- OUTSIDE RECORDS SUMMARY | 2025-03-23 16:53 | XMS_ITS | Encounter Summary ---
Author Organization [facility] Address [address] [place] [address] Care Team Providers Care Metal Trimmer Name Role Phone Guzman Miranda Primary Care Provider Reason for Visit * Reason Onset Date Comments PAC Nurse Scheduling Request 03/10/2023 Encounter Details Date Type Department Care Team (Late st Contact Info) Description 03/10/2023 Telephone [facility] [address] [place] [phone] Telephone Intake, Staff PAC Nurse Scheduling Request Social History Tobacco Use Types Packs/Day Years Used Date Smoking Tobacco: Never Smokeless Tobacco: Never Alcohol Use Standard Drinks/Week Comments Not Currently 0 (1 standard drink = 0.6 oz pur e alcohol) Sex and Gender Information Value Date Recorded Sex Assigned at Not on file Legal Sex Male 11:24 AM EDT Gender Identity Not on file Sexual Orientation Not on file 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 Best phone number is [phone]. Thank you. documented in this encounter Plan of Treatment Not on file documented as of this encounter Visit Diagnoses Not on filedocumented in this encounter Care Teams Metal Trimmer Relationship Specialty Start Date End Date Guzman Miranda [address] [place] [address] PCP - General 03/04/22 documented as of this encounter
--- OUTSIDE RECORDS SUMMARY | 2025-03-23 16:53 | XMS_ITS | Encounter Summary ---
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 Message left for patient to return our call to discuss if he has been monitoring his B/P's and what the readings are and if he wants [facility] [place]. Call back phone numbers provided. * Telephone Encounter - Shiela Valladares - 12/17/2022 12:22 PM EST Pt is calling regarding an order that was sent from Destinee Aparicio MD, to his PCP for weekly labs. Unfortunately the PCP can not complete the request since the Pt hasn't been seen there for afew years. Please call him back to discuss alterative. Best phone# [phone] Followed DT: TE sent to clinic admin pool documented in this encounter Plan of Treatment Not on file documented as of this encounter Visit Diagnoses Not on filedocumented in this encounter Care Teams Vending Mechanic Relationship Specialty Start Date End Date Guzman Miranda [address] [place] [address] PCP - General 03/04/22 documented as of this encounter
--- OUTSIDE RECORDS SUMMARY | 2025-03-23 16:53 | XMS_ITS | Clinical Summary ---
Author Organization [facility] Address [address] [place] [address] Care Team Providers Care Superintendent Radio Communications Name Role Phone Guzman Miranda Primary Care Provider Allergies Active Allergy Reactions Criticality Noted Date Comments Morphine Hives 05/03/2022 Medications atorvastatin (LIPITOR) 10 mg tablet 2 Active Vitamin D3 50 mcg (2,000 unit) capsule Take 1 capsule by mouth once a day. 2 Active metFORMIN ER (GLUCOPHAGE XR) 500 mg tablet 500 mg 2 (two) times a day. 2 Active omeprazole (PriLOSEC) 40 mg capsule Take 40 mg by mouth daily. Active ondansetron (ZOFRAN) 8 mg tablet Take 1 tablet (8 mg total) by mouth every 8 hours as needed for nausea or vomiting. 30 tablet 3 3 Active Additional Information Patient not taking.Reported on 10/01/2024 lisinopriL (PRINIVIL,ZESTR IL) 2.5 mg tablet Take 2.5 mg by mouth once a day. Active clindamycin (CLINDAGEL) 1 % gel Apply topically to the affected area 2 times a day. As needed for rash 30 g 1 3 Active Additional Information Patient not taking.Reported on 10/01/2024 triamcinolone acetonide (KENALOG) 0.1% cream Apply topically to the affected area 2 times a day. To affected area on back 30 g 1 3 Active SORAfenib (NexAVAR) 200 mg chemo tablet TAKE 2 TABLETS BY MOUTH ONCE DAILY ON AN EMPTY STOMACH 1 HOUR BEFORE OR 2 HOURS AFTER A MEAL SWALLOW WHOLE 60 tablet 2 4 Active Additional Information Patient not taking.Reported on 10/01/2024 Jardiance 10 mg Take 10 mg by mouth once a day. Active ketoconazole (NIZORAL) 2% cream Apply 1 application. topically to the affected area once a day. Active multivitamin (THERAGRAN) tablet Take 1 tablet by mouth once a day. Active PATIENT REPORTED OTC MEDICATION Take by mouth once a day. COLLAGEN Active PATIENT REPORTED OTC MEDICATION Take by mouth once a day. [facility] [employer] Hailey Kaletrudy Active Active Problems No known active problems Family History Medical History Relation Name Comments No Known Problems Brother Diabetes Father Cancer Mother No Known Problems Other No Known Problems Sister Relation Name Status Comments Brother Alive Father Alive Mother Other Alive Sister Alive Social History Tobacco Use Types Packs/Day Years Used Date Smoking Tobacco: Never Smokeless Tobacco: Never Tobacco Cessation:Counseling Given: Not Answered Alcohol Use Standard Drinks/Week Comments Not Currently 0 (1 standard drink = 0.6 oz pur e alcohol) Sex and Gender Information Value Date Recorded Sex Assigned at Not on file Legal Sex Male 11:24 AM EDT Gender Identity Not on file Sexual Orientation Not on file 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 Not on file Not on file Last Filed Vital Signs Vital Sign Reading Time Taken Comments Blood Pressure 118/82 10/01/2024 9:11 AM EDT Pulse 85 10/01/2024 9:11 AM EDT Temperature 36.5 ??C (97.7 ??F) 10/01/2024 9:11 AM ED T Respiratory Rate 16 05/21/2024 3:07 PM EDT Oxygen Saturation 98% 10/01/2024 9:11 AM EDT Inhaled Oxygen Concentration - - Weight 80.3 kg (177 lb) 10/01/2024 9:11 AM EDT Height 172.7 cm (5' 8 ) 10/01/2024 9:11 AM EDT Body Mass Index 26.91 10/01/2024 9:11 AM EDT Plan of Treatment Health Maintenance Due Date Last Done Comments Arthur 1979 Colon Cancer Screening 1979 Colonoscopy 1979 FOBT / Fit Test 1979 HIV Screening 1979 Hepatitis C Screening 1979 Sigmoidoscopy 1979 Hepatitis B Vaccines (1 of 3 - 19+ 3-dose series) 1998 DTaP,Tdap,and Td Vaccines (1 - Tdap) 2001 COVID-19 Vaccine ( - 2023-2 5 season) 2024 Alcohol/Substance Use Screening 12/01/2024 Depression Screening and Follow-Up 12/01/2024 Social Drivers of Health Tory ual Screening 12/01/2024 Influenza Vaccine (Season Ended) 2025 RSV Vaccine (60+ years old a nd patients) (1 - 1-dose 75+ series) 2054 Pneumococcal Vaccine: Pediat rodolfo (0-5 Years) and At-Risk Patients (6-50 Years) Aged Out No longer eligible b ased on patient's age to complete this topic Insurance [employer] OUT OF STATE PPO Care Teams Superintendent Radio Communications Relationship Specialty Start Date End Date Guzman Miranda [address] [place] [address] PCP - General 03/04/22
--- OUTSIDE RECORDS SUMMARY | 2025-03-23 16:53 | XMS_ITS | Referral Summary ---
Author Organization [facility] Address [address] [place] [address] Care Team Providers Care Communication Center Coordinator Name Role Phone Guzman Miranda Primary Care [...] 10 mg by mouth once a day. 4 Active ketoconazole (NIZORAL) 2% cream Apply 1 application. topically to the affected area once a day. 4 Active multivitamin (THERAGRAN) tablet Take 1 tablet by mouth once a day. Active PATIENT REPORTED OTC MEDICATION Take by mouth once a day. COLLAGEN Active PATIENT REPORTED OTC MEDICATION Take by mouth once a day. 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
--- OUTSIDE RECORDS SUMMARY | 2025-03-23 16:53 | XMS_ITS | Encounter Summary ---
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 Procedure Name Priority Date/Time Associated Diagnosis Comments TISSUE EXAM Routine 03/21/2022 7:09 PM EDT TISSUE EXAM Routine 03/21/2022 7:09 PM EDT documented in this encounter Results * Due to [place] [employer] law, this organization might not be sharing negative HIV tests. * Tissue Exam (03/21/2022 7:09 PM EDT) Final Diagnosis Review of Outside Slides Received from [facility] Labeled [id number] (Procedure Date 04/09/17) and [id number] (Procedure Date 06/07/20): Specimen #1 - Right Elbow ([id number]; Procedure Date 06/07/20), Fibroma: - Consistent with fibromatosis. - The tumor focally extends to the excised tissue margin. Comment: An immunohistochemical stain for beta-catenin is negative. Specimen #2 - Right Elbow ([id number] (Procedure Date 04/09/17), Mass: - Consistent with fibromatosis (4 cm). - The tumor focally extends to the excised tissue margin. Comment: An immunohistochemical stain for S100 is negative. [facility] MANUAL 2 2:18 PM EDT [facility] at 1418 EDT Clinical History Right Elbow Mass [facility] MANUAL 2 2:18 PM EDT [facility] Gross Consult Client Facility: [facility] Slide Identification: [id number] and [id number] Number of Glass Slides Received: 5 + 8 = 13 Number of Blocks Received: 0 Client Pathologist: Marcos Mukherjee Accompanying Report Received: Yes [facility] MANUAL 2 2:18 PM EDT [facility] Gross Description User Grossing complete by Judith Arreola on 03/21/2022 7:10 PM [facility] MANUAL 2 2:18 PM EDT [facility] Embedded Images [facility] MANUAL 2 2:18 PM EDT [facility] Resulting Agency Case was signed out at [facility], Department of Pathology, [facility] 3 CLIA [id number] [facility] MANUAL 2 2:18 PM EDT [facility] Tissue Right elbow region structure / Unknown 03/21/2022 7:09 PM EDT 03/21/2022 7:10 PM EDT Tissue specimen (specimen) Right elbow region structure / Unknown 03/21/2022 7:09 PM EDT 03/21/2022 7:10 PM EDT us Cory Asif MD LAB PATHOLOGY/CYTOLOGY ORDERAB LES Final Result [facility] [address] [place] [address], [place] * Tissue Exam (03/21/2022 7:09 PM EDT) Final Diagnosis Review of Outside Slides Received from [facility] Labeled [id number] (Procedure Date 04/09/17) and [id number] (Procedure Date 06/07/20): Specimen #1 - Right Elbow ([id number]; Procedure Date 06/07/20), Fibroma: - Consistent with fibromatosis. - The tumor focally extends to the excised tissue margin. Comment: An immunohistochemical stain for beta-catenin is negative. Specimen #2 - Right Elbow ([id number] (Procedure Date 04/09/17), Mass: - Consistent with fibromatosis (4 cm). - The tumor focally extends to the excised tissue margin. Comment: An immunohistochemical stain for S100 is negative. [facility] MANUAL 2 2:18 PM EDT [facility] at 1418 EDT Clinical History Right Elbow Mass [facility] 2 2:18 PM EDT [facility] Gross Consult Client Facility: [facility] Slide Identification: [id number] and [id number] Number of Glass Slides Received: 5 + 8 = 13 Number of Blocks Received: 0 Client Pathologist: Marcos Mukherjee Accompanying Report Received: Yes [facility] 2 2:18 PM EDT [facility] Gross Description User Grossing complete by Judith Arreola on 03/21/2022 7:10 PM [facility] 2 2:18 PM EDT [facility] Embedded Images [facility] 2 2:18 PM EDT [facility] Resulting Agency Case was signed out at [facility], Department of Pathology, Biotech 3 CLIA [id number] [facility] MANUAL 2 2:18 PM EDT [facility] Tissue Right elbow region structure / Unknown 03/21/2022 7:09 PM EDT 03/21/2022 7:10 PM EDT Tissue specimen (specimen) Right elbow region structure / Unknown 03/21/2022 7:09 PM EDT 03/21/2022 7:10 PM EDT us Cory Asif MD LAB PATHOLOGY/CYTOLOGY ORDERAB LES Final Result [facility] [address] [place] [address], documented in this encounter Visit Diagnoses Not on filedocumented in this encounter Care Teams Reed Man Relationship Specialty Start Date End Date Guzman Miranda [address] [place] [address] PCP - General 03/04/22 documented as of this encounter
== END 2025-03-23 15:42 | disposition home or self-care (01) ==
LOC: HO.HMCC 14:03
PROVIDERS: PCP Nurse Practitioner Family; Visit Provider Nurse Practitioner Family
DX: E11.9 Type 2 diabetes mellitus without complications (principal)

== ENCOUNTER → 2025-03-23 14:02 | Outpatient (BNVA) | payer BC, SELFPAY | PROVIDERS: PCP Nurse Practitioner Family; Visit Provider Nurse Practitioner Family | DX: E11.9 Type 2 diabetes mellitus without complications (principal) | CPT/HCPCS: 96127 ==

== ENCOUNTER 2025-06-15 10:35 | Outpatient (AMB) | payer BC, SELFPAY ==
--- NOTE | 2025-06-15 10:42 | A.OFFVIS_ITS ---
Vital Signs 06/15/25 10:45 Height 5 ft 7 in Weight 170 lb BMI 26.6 BP 107/60 Blood Pressure Location Lt brachial Position Sitting Pulse 102 H Pulse Oximetry (%) 96 Oxygen Delivery Method Room Air Intake Visit Reasons: colo screening Intake Note: Patient new consult for 1st pre Colonoscopy screening. Patient denies any GI issues for today visit. Senior Mainframe Developer Required: No Accompanied by: Self / Same As Patient Allergies morphine (MORPHINE) Allergy (Intermediate, Verified 06/15/25 10:42) HIVES oxycodone Allergy (Verified 06/15/25 10:42) Hives HPI HPI colo screening: Details: 44 year old? male with past medical history of dyslipidemia, diabetes, desmoid fibromatosis is here today for pre colonoscopy screening.? Patient was sent to us by his PCP.? This is his first colonoscopy screening.? Patient denies any gastrointestinal symptoms in the past or at present.? Denies any personal or family history of gastrointestinal disease or CRC.? Patient's mom had polyps and paternal aunt had polyps as well. Denies history of difficulty with sedation or anesthesia in the past.? Negative for history of sleep apnea.? Denies any history of cardiac, renal, pulmonary, or hepatic disease.?? No history of infectious? diseases like hepatitis A, B, C, HIV or tuberculosis.? Patient is not on any anticoagulation [facility] Medical History Kidney stones Mass of right elbow Overweight (BMI 25.0-29.9) Vitamin D deficiency Dyslipidemia Diabetes type 2, controlled Surgical History Hx of elbow surgery Family History Father Diabetes mellitus Mother Diabetes mellitus Brother No problems noted. Sister Diabetes mellitus Sister No problems noted. Sister No problems noted. Sister No problems noted. Sister No problems noted. Sister No problems noted. Social History Housing: House Patient Tobacco Use Status: Never used Tobacco e-Cigarette/Vaping Use: Never Used Second Hand Smoke Exposure: No service: No Current occupational status: employed Current occupation: [employer] Current occupational exposures/hazards: No Cognitive needs: No Hearing needs: No Vision needs: No Review of Systems Const Denies weight gain and Denies weight loss ENT Reports no additional complaints, Denies dysphagia and Denies odynophagia Card Reports no additional complaints Resp Reports no additional complaints GI Denies abdominal pain, Denies belching, Denies melena, Denies bloating, Denies change in bowel habits, Denies dysphagia, Denies excessive flatus, Denies dyspepsia, Denies heartburn, Denies diarrhea, Denies loose stools, Denies nausea, Denies odynophagia and Denies vomiting Reports no additional complaints Musc Reports no additional complaints Neuro Reports no additional complaints Psych Reports no additional complaints Endo Reports no additional complaints Physical Exam Vital Signs: Last Vital Signs Pulse 102 H 06/15/25 10:45 BP 107/60 06/15/25 10:45 Pulse Ox 96 06/15/25 10:45 Oxygen Delivery Method Room Air 06/15/25 10:45 BMI result Body Mass Index 26.6 Const General: healthy appearing, no acute distress and well developed Nutritional Appearance: well nourished Orientation/consciousness: patient oriented x3 Resp Effort & Inspection: normal respiratory effort, able to speak in complete sentences, no tracheal deviation and symmetric chest movement Auscultation: clear to auscultation bilaterally Cardio Rate: regular rate GI Inspection: Yes normal to inspection and No distended Palpation (GI): Soft to palpation, not firm, nontender and No hepatosplenomegaly present Auscultation: normal bowel sounds General: Yes no CVA tenderness Back/Spine/Pelvis Back: no CVA tenderness Skin General skin exam: elasticity normal, turgor normal and dry skin Neuro General: patient oriented x3 Psych Appearance: grossly normal Mental Status: mental status grossly normal Assessment & Plan Assessment & Plan (1) Screening for colon cancer: Code(s): Z12.11 - Encounter for screening for malignant neoplasm of colon Category: Medical Plan Patient denies any GI, cardiac or respiratory symptoms.? Denies any issues with anesthesia in the past.? Denies any history of sleep apnea.? No history infectious diseases in the past or present.? Not on any anticoagulation therapy.? No family or personal history of colon cancer or polyps.? Patient denies melena, hematochezia, unintentional weight loss or ribbon like stools.? Discussed at length the pre-procedure,? prep, diet & medications as well as what to expect prior, during and after the procedure.?? Stressed the importance of good bowel prep.? Recommended the use of Vaseline or Calmoseptine OTC & baby wipes with bowel movements to promote comfort.? ?Patient verbalizes understanding and agrees to plan of care.? He was given the opportunity to ask questions and all questions answered.? We will see him after the procedure Medications: New bisacodyl (Dulcolax (bisacodyl)) take 4 tabs at noon the day before your colonoscopy 20 mg (4 x 5 mg) PO ONCE 4 tabs 0RF constipation 1 day Z12.11 - Encounter for screening for malignant neoplasm of colon polyethylene glycol 3350 (Miralax) As directed by gastroenterology department at [facility] 238 grams PO ONCE 238 grams 0RF Z12.11 - Encounter for screening for malignant neoplasm of colon Coding Level of Care Code New Pt Level 3 (30295) Diagnoses Screening for colon cancer Z12.11 Time Spent (min) 40 Comment 30 minutes spent with patient and additional 10 minutes spent reviewing his records
[2025-06-15 10:45] VITALS: BP 107/60; PULSE 102; O2SAT 96; BMI 26.6
--- OUTSIDE RECORDS SUMMARY | 2025-06-15 11:13 | XMS_ITS | Encounter Summary ---
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 Best phone# [phone] Followed DT: TE sent to clinic admin pool documented in this encounter Plan of Treatment Not on file documented as of this encounter Visit Diagnoses Not on filedocumented in this encounter Care Teams Caser Relationship Specialty Start Date End Date Guzman Miranda [address] [place] [address] PCP - General 03/04/22 documented as of this encounter
--- OUTSIDE RECORDS SUMMARY | 2025-06-15 11:13 | XMS_ITS | Clinical Summary ---
Author Organization [facility] Address [address] [place] [address] Care Team Providers Care Manager Management Name Role Phone Unavailable Primary Care Provider [...] - 19+ 3-dose series) 1998 Influenza Vaccine (#1) 2025 Pneumococcal Vaccine: Peds ( 0 to 5 Years) and At-Risk Patients (6 to 49 Years) Aged Out No longer eligible b ased on patient's age to complete this topic
--- OUTSIDE RECORDS SUMMARY | 2025-06-15 11:14 | XMS_ITS | Patient Health Record ---
Author Organization [facility] Address [address] [place] [address] Care Team Providers Care Host/Hostess Restaurant Name Role Phone Willian Bah M.D. 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 Problem 239000233 Elevated liver function tests (R79.89) Active confirmed Problem 978527896 Elevated liver enzymes (R74.8) Active confirmed Problem 285340534 Fatty liver (K76.0) Active confirmed Plan Of Treatment Pending Test Test Name Order Date LIVER PROFILE 08/07/2016 LIVER PROFILE 11/19/2016 CBC w DIFF 10/10/2015 CBC w DIFF 11/19/2016 PROTHROMBIN TIME (PT, INR) 10/10/2015 PROTHROMBIN TIME (PT, INR) 11/19/2016 PARTIAL THROMBOPLASTIN TIME (PTT) 2015 PARTIAL THROMBOPLASTIN TIME (PTT) 2014 [id number] (A1A) 11/19/2016 CERULOPLASMIN 10/04/2015 US LIVER BIOPSY CORE GUIDE 10/10/2015 Insurance Providers Payer Name Payer Address Payer Phone Subscriber Number Group Number Insured Name Patient Relationship to Insured Coverage Start Date Coverage End Date [employer]/ LOCAL [address] (check p/a) 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
== END 2025-06-15 11:10 | disposition home or self-care (01) ==
LOC: HO.HGI 10:36
PROVIDERS: PCP Nurse Practitioner Family; Visit Provider Nurse Practitioner Family
DX: Z01.818 Encounter for other preprocedural examination (principal); Z12.11 Encounter for screening for malignant neoplasm of colon
CPT/HCPCS: S0285

== ENCOUNTER 2025-07-14 15:45 | Outpatient (AMB) | payer BC, SELFPAY ==
--- OUTSIDE RECORDS SUMMARY | 2025-07-14 16:01 | XMS_ITS | Clinical Summary ---
Author Organization [facility] Address [address] [place] [address] Care Team Providers Care Manager Financial Reporting Name Role Phone Unavailable Primary Care Provider [...]
--- OUTSIDE RECORDS SUMMARY | 2025-07-14 16:01 | XMS_ITS | Patient Health Record ---
Author Organization [facility] Address [address] [place] [address] Care Team Providers Care Garbage Collection Supervisor Name Role Phone Willian Bah M.D. 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 Problem 821015859 Elevated liver function tests (R79.89) Active confirmed Problem 312389152 Elevated liver enzymes (R74.8) Active confirmed Problem 795122062 Fatty liver (K76.0) Active confirmed Plan Of Treatment Pending Test Test Name Order Date LIVER PROFILE 08/07/2016 LIVER PROFILE 11/19/2016 CBC w DIFF 10/10/2015 CBC w DIFF 11/19/2016 PROTHROMBIN TIME (PT, INR) 10/10/2015 PROTHROMBIN TIME (PT, INR) 11/19/2016 PARTIAL THROMBOPLASTIN TIME (PTT) 2015 PARTIAL THROMBOPLASTIN TIME (PTT) 2014 [id number] (A1A) 11/19/2016 CERULOPLASMIN 10/04/2015 US LIVER BIOPSY CORE GUIDE 10/10/2015 Insurance Providers Payer Name Payer Address Payer Phone Subscriber Number Group Number Insured Name Patient Relationship to Insured Coverage Start Date Coverage End Date [employer]/ LOCAL [address] (check p/a) 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
--- OUTSIDE RECORDS SUMMARY | 2025-07-14 16:01 | XMS_ITS | Encounter Summary ---
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 Best phone# [phone] Followed DT: TE sent to clinic admin pool documented in this encounter Plan of Treatment Not on file documented as of this encounter Visit Diagnoses Not on filedocumented in this encounter Care Teams Commercial Underwriter Relationship Specialty Start Date End Date Guzman Miranda [address] [place] [address] PCP - General 03/04/22 documented as of this encounter
--- OUTSIDE RECORDS SUMMARY | 2025-07-14 16:01 | XMS_ITS | Clinical Summary ---
Author Organization [facility] Address [address] [place] [address] Phone Care Team Providers Care Full Time Name Role Phone Guzman Miranda NP Primary Care Provider + Destinee Aparicio MD Unavailable [phone] Allergies Active Allergy Reactions Criticality Noted Date Comments Morphine Hives 05/03/2022 Medications metFORMIN (GLUCOPHAGE-XR) 500 MG 24 hr tablet Take 1,000 mg by mouth 2 (two) times a day. 02/25/2022 Active atorvastatin (LIPITOR) 10 MG tablet Take 10 mg by mouth daily. 02/25/2022 Active cholecalciferol (VITAMIN D3) 2,000 unit capsule Take 1 capsule by mouth daily. 02/25/2022 Active sulindac (CLINORIL) 150 MG tablet Take 150 mg by mouth 2 (two) times a day. 07/07/2022 Active omeprazole (PRILOSEC) 40 MG capsule Take 40 mg by mouth daily. 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 Not on myles e 03/29/2023 Are you concerned about learning? Not on file 03/29/2023 No 03/29/2023 No 03/29/2023 Digital Access Answer Date Recorded No 04/29/2023 No 04/29/2023 Reliable internet access at home? Not on file 04/29/2023 Device with a working camera? Not on file Sex and Gender Information Value Date Recorded Sex Assigned at Male 08/02/2022 12:24 PM EDT Legal Sex Male 12:09 PM EDT Gender Identity Male 08/02/2022 12:24 PM EDT Sexual Orientation Straight 08/02/2022 12 :24 PM EDT Last Filed Vital Signs Vital Sign Reading Time Taken Comments Blood Pressure 121/74 09/05/2022 9:58 AM EDT Pulse 97 09/05/2022 9:58 AM EDT Temperature 36.6 C (97.8 F) 09/05/2022 9:58 AM EDT Respiratory Rate 18 09/05/2022 9:58 AM EDT Oxygen Saturation 97% 09/05/2022 9:58 AM EDT Inhaled Oxygen Concentration - - Weight 80.1 kg (176 lb 9.4 oz) 09/05/2022 9:58 A M EDT Height 167.3 cm (5' 5.87 ) 09/05/2022 9:58 AM ED T Body Mass Index 28.62 09/05/2022 9:58 AM EDT Plan of Treatment Health Maintenance Due Date Last Done Comments Adult Td,Tdap Booster 1979 CREATININE LEVEL 1979 LIPID PANEL 1979 DEPRESSION SCREENING 1991 HEPATITIS C SCREENING 1997 HIV ONE-TIME SCREENING (18-6 5 YEARS) 1997 SCREENING FOR DIABETES 2014 COLOGUARD 2024 COLONOSCOPY 2024 COLORECTAL CANCER SCREENING 2024 FIT TEST 2024 FOBT 2024 SIGMOIDOSCOPY 2024 VIRTUAL COLONOSCOPY 2024 COVID-19 VACCINE ( - 2023-2 5 season) 2024 SMOKING STATUS SCREENING (On ce After 26 Yrs) Completed 08/29/2022 HEPATITIS A VACCINES Aged Out No long er eligible based on patient's age to complete this topic HIB VACCINES Aged Out No longer eligi ble based on patient's age to complete this topic MENINGOCOCCAL VACCINES (ACWY) Aged Out No longer eligible based on patient's age to complete this topic MENINGOCOCCAL VACCINES (B) Aged Out N o longer eligible based on patient's age to complete this topic PNEUMOCOCCAL VACCINES (0-49 years) Aged Out No longer eligible based on patient's age to complete this topic Medical Devices Not on file Insurance OUT [facility] PPO OUT [facility] PPO OUT [facility] PPO BLUE CROSS OUT OF STATE PPO BLUE CROSS OUT OF STATE PPO BLUE CROSS OUT OF STATE PPO BLUE CROSS OUT OF STATE PPO BLUE CROSS OUT OF STATE PPO BLUE CROSS OUT OF STATE PPO Care Teams Full Time Relationship Specialty Start Date End Date Guzman Miranda NP [address] [place] [address] PCP - General Family Medicine 08/02/22 Destinee Aparicio MD [address] [place] [id number] [email or web address] Fellow Oncologist Hematology and Oncology 09/06/22 Additional Source Comments The information contained in this document represents components of the legal health record. It is not the complete legal health record.[facility]
--- NOTE | 2025-07-14 16:12 | AM.OFFWIN_ITS ---
Intake Vital Signs 07/14/25 16:14 Height 5 ft 7 in Weight 170 lb BMI 26.6 BP 106/70 Blood Pressure Location Lt brachial Position Sitting Pulse 107 H Pulse Source Pulse Oximeter Temp 98.0 F Temp Source Oral Pulse Oximetry (%) 98 Oxygen Delivery Method Room Air Intake Visit Reasons: EP LT knee pain, swelling Intake Note: presents with left knee pain and swelling Patient Tobacco Use Status: Never used Tobacco Allergies morphine (MORPHINE) Allergy (Intermediate, Verified 07/14/25 16:13) HIVES oxycodone Allergy (Verified 07/14/25 16:13) Hives Do you need a note to return to daycare/school/sports/work: No HPI HPI Comments History of Present Illness Details 44 y/o Male patient who presents to the walk in clinic with c/o Left knee pain since last Friday. Denies Injury or trauma to the knee. Denies recent or previous surgeries to the knee. Reports pain worse with walking, bending and standing. He is using knee brace with some relief. He has also been taking Motrin 800 mg with good relief. [facility] Medical History (Updated 07/14/25 @ 16:48 by Florence Trotter NP) Left knee pain Kidney stones Mass of right elbow Overweight (BMI 25.0-29.9) Vitamin D deficiency Dyslipidemia Diabetes type 2, controlled Surgical History Hx of elbow surgery Family History Father Diabetes mellitus Mother Diabetes mellitus Brother No problems noted. Sister Diabetes mellitus Sister No problems noted. Sister No problems noted. Sister No problems noted. Sister No problems noted. Sister No problems noted. Social History Housing: House Patient Tobacco Use Status: Never used Tobacco e-Cigarette/Vaping Use: Never Used Second Hand Smoke Exposure: No service: No Current occupational status: employed Current occupation: [employer] and [employer] Current occupational exposures/hazards: No Cognitive needs: No Hearing needs: No Vision needs: No Review of Systems Const All systems reviewed & are unremarkable except as noted in HPI and below Physical Exam Vital Signs: Last Vital Signs Temp 98.0 F 07/14/25 16:14 Pulse 107 H 07/14/25 16:14 BP 106/70 07/14/25 16:14 Pulse Ox 98 07/14/25 16:14 Oxygen Delivery Method Room Air 07/14/25 16:14 BMI result Body Mass Index 26.6 Const General: no acute distress Nutritional Appearance: well nourished Orientation/consciousness: patient oriented x3 Neuro General: patient oriented x3, gait normal and moves all extremities Extrem Right lower extremity: normal to inspection and full ROM Left lower extremity: knee Details: normal to inspection, tenderness and abnormal ROM Details: pain with active ROM, pain with passive ROM and unable to extend lower leg actively; no swelling and no deformity Psych Speech and movement: Normal speech and movement present Assessment & Plan Assessment & Plan (1) Left knee pain: Code(s): M25.562 - Pain in left knee Qualifiers: Chronicity: acute Qualified Code(s): M25.562 - Pain in left knee Plan: DDx's OA vs Strain vs Sprain Continue with Knee Brace NSAIDs and Acetaminophen for pain relief. Ice/Hot Rest joint. Medications: New cyclobenzaprine 10 mg PO BEDTIME 14 tabs 0RF M25.562 - Pain in left knee prednisone 20 mg PO DAILY 7 tabs 0RF 7 days M25.562 - Pain in left knee acetaminophen 1,000 mg (2 x 500 mg) PO Q6H PRN 20 caps 0RF pain M25.562 - Pain in left knee Coding Level of Care Code Est Pt Level 4 (95166) Diagnoses Acute pain of left knee M25.562 Chronicity: acute Time Spent (min) 20
[2025-07-14 16:14] VITALS: BP 106/70; PULSE 107; TEMP 36.7; O2SAT 98; BMI 26.6
== END 2025-07-14 16:56 | disposition home or self-care (01) ==
PROVIDERS: PCP Nurse Practitioner Family; Visit Provider Nurse Practitioner Family
DX: M25.562 Pain in left knee (principal)

== ENCOUNTER 2025-07-18 08:51 | Outpatient (REF) | payer BC, SELFPAY ==
--- OUTSIDE RECORDS SUMMARY | 2025-07-18 09:19 | XMS_ITS | Patient Health Record ---
Author Organization [facility] Address [address] [place] [address] Care Team Providers Care Narrative Writer Name Role Phone Willian Bah M.D. 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) Active confirmed Problem 760304601 Elevated liver function tests (R79.89) Active confirmed Problem 582757797 Elevated liver enzymes (R74.8) Active confirmed Problem 242011336 Fatty liver (K76.0) Active confirmed Plan Of Treatment Pending Test Test Name Order Date LIVER PROFILE 08/07/2016 LIVER PROFILE 11/19/2016 CBC w DIFF 10/10/2015 CBC w DIFF 11/19/2016 PROTHROMBIN TIME (PT, INR) 10/10/2015 PROTHROMBIN TIME (PT, INR) 11/19/2016 PARTIAL THROMBOPLASTIN TIME (PTT) 2014 PARTIAL THROMBOPLASTIN TIME (PTT) 2015 [id number] (A1A) 11/19/2016 CERULOPLASMIN 10/04/2015 US LIVER BIOPSY CORE GUIDE 10/10/2015 Insurance Providers Payer Name Payer Address Payer Phone Subscriber Number Group Number Insured Name Patient Relationship to Insured Coverage Start Date Coverage End Date [employer]/ [address] (check p/a) 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
--- OUTSIDE RECORDS SUMMARY | 2025-07-18 09:19 | XMS_ITS | Encounter Summary ---
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 Best phone# [phone] Followed DT: TE sent to clinic admin pool documented in this encounter Plan of Treatment Not on file documented as of this encounter Visit Diagnoses Not on filedocumented in this encounter Care Teams Sessions Clerk Relationship Specialty Start Date End Date Guzman Miranda [address] [place] [address] PCP - General 03/04/22 documented as of this encounter
--- OUTSIDE RECORDS SUMMARY | 2025-07-18 09:19 | XMS_ITS | Clinical Summary ---
Author Organization [facility] Address [address] [place] [address] Phone Care Team Providers Care Staff Auditor Name Role Phone Guzman Miranda NP Primary Care Provider + Destinee Aparicio MD Unavailable Allergies Active Allergy Reactions Criticality Noted Date [...] Medical Devices Not on file Insurance OUT [facility] PPO OUT [facility] PPO OUT [facility] PPO BLUE CROSS OUT OF STATE PPO BLUE CROSS OUT OF STATE PPO BLUE CROSS OUT OF STATE PPO BLUE CROSS OUT OF STATE PPO BLUE CROSS OUT OF STATE PPO BLUE CROSS OUT OF STATE PPO Care Teams Staff Auditor Relationship Specialty Start Date End Date Guzman Miranda NP [address] [facility] [place] [address] PCP - General Family Medicine 08/02/22 Destinee Aparicio MD [address] [place] [address] [email or web address] Fellow Oncologist Hematology and Oncology 09/06/22 Additional Source Comments The information contained in this document represents components of the legal health record. It is not the complete legal health record.[facility]
--- OUTSIDE RECORDS SUMMARY | 2025-07-18 09:19 | XMS_ITS | Clinical Summary ---
Author Organization [facility] Address [address] [place] [address] Care Team Providers Care Dietary Worker Name Role Phone Unavailable Primary Care Provider [...]
[2025-07-18 09:58] LABS: MANUAL DIFF FLAG NO
[2025-07-18 10:00] LABS: Appearance Urine Clear; Glucose Urine UA 100 mg/dL (Negative); PH 6.5 (5.0-9.0); Specific Gravity - Urine 1.010 (1.005-1.025)
[2025-07-18 10:06] LABS: Hematocrit 38.6 % (42.0-52.0); Hemoglobin 13.5 g/dl (14.0-18.0); Imm Gran Abs Auto 0.02 X10*3/uL (0.00-0.03); Imm Gran Pct Auto 0.3 % (0.0-0.4); Lymphocytes Absolute Auto 2.2 X10*3/uL (1.2-4.9); Mean Corpuscular HGB Conc 35.0 g/dl (31.0-36.0); Mean Corpuscular Hemoglobin 30.6 pg (27.0-33.0); Mean Corpuscular Volume 87.5 fL (80.0-98.0); NRBC Abs Auto 0.000 X10*3/uL (0.0-0.012); NRBC Pct Auto 0.0 /100WBC (0.0-0.2); Platelet Count 256 X10*3/uL (160-400); Red Blood Count 4.41 X10*6/uL (4.60-5.80); White Blood Count 5.9 X10*3/uL (4.8-10.8)
[2025-07-18 10:20] LABS: Hemoglobin A1C 204.6017 umol/L; Total Hemoglobin (HGBA1C) 3661.2905 umol/L
[2025-07-18 11:01] LABS: Alanine Aminotransferase 26 U/L (0-40); Albumin Level 4.4 g/dL (3.5-5.0); Alkaline Phosphatase 117 U/L (39-117); Anion Gap 12 (12-20); Aspartate Amino Transferase 25 U/L (5-37); Blood Urea Nitrogen 13 mg/dL (9-16); Calcium 9.1 mg/dL (8.4-10.2); Carbon Dioxide 29 mmol/L (22-29); Chloride 105 mmol/L (96-108); Cholesterol 155 mg/dL (<200); Estimated Glomerular Filt Rate > 60; HDL Cholesterol 43 mg/dL (>40); Potassium 4.0 mmol/L (3.3-5.1); Sodium 142 mmol/L (135-145); Total Protein 6.6 g/dL (6.5-8.0); Triglycerides 101 mg/dL (<150)
== END 2025-07-18 08:52 | disposition home or self-care (01) ==
LOC: HO.HMGCLDS 08:51
PROVIDERS: PCP Nurse Practitioner Family; Visit Provider Nurse Practitioner Family
DX: E11.9 Type 2 diabetes mellitus without complications (principal)
CPT/HCPCS: 36415; 80053; 80061; 81003; 83036; 84443; 85025

== ENCOUNTER 2025-07-20 13:41 | Outpatient (AMB) | payer BC, SELFPAY ==
--- NOTE | 2025-07-20 13:53 | A.OFFPC_ITS ---
Vital Signs 07/20/25 13:54 Height 5 ft 7 in Weight 171 lb BMI 26.8 BP 120/80 Blood Pressure Location Lt brachial Position Sitting Respiration 16 Pulse 95 Pulse Source Pulse Oximeter Pulse Oximetry (%) 95 Oxygen Delivery Method Room Air Intake Visit Reasons: 4m follow up Nurse First Assist Required: No Accompanied by: Self / Same As Patient Allergies morphine (MORPHINE) Allergy (Intermediate, Verified 07/20/25 13:53) HIVES oxycodone Allergy (Verified 07/20/25 13:53) Hives Tobacco use date assessed: 07/20/25 Dental Screening Dental Screen Date: 07/20/25 Did you have a dental visit in the last 12 months?: Yes Did you have a dental problem in the last 6 months where you did not have access to dental care?: No Was dental information given to patient?: Patient has dentist HPI 4m follow up HPI Details Chief Complaint The patient presents for a follow-up regarding diabetes management. History of Present Illness The patient is a 44-year-old male presenting with follow-up for diabetes management. His recent laboratory results indicated an A1c level of 7.3%. He denies experiencing fatigue, neuropathy, polyuria, or polydipsia. The patient also has a history of anemia, which was noted in his recent lab results. He denies any symptoms of fatigue associated with slight anemia. Preventative care measures were discussed, including the need for a colon cancer screening, for which he is awaiting a callback from the gastroenterology provider. NOTE: declined any new meds today Social History Health Maintenance - Colon cancer screening: Awaiting callb ack from gastroenterology provider - Microalbumin test scheduled for [facility] - Eye examination is up to date - Refused all vaccinations Review of Systems - General: Denies fatigue - Neurological: Denies neuropathy - Endocrine: Denies polyuria, polydipsia - Cardiovascular: Denies chest pain - Respiratory: Denies dyspnea Physical Exam General: Cooperative, healthy appearing, comfortable, no acute distress and well developed Orientation: Patient oriented x3 Limitations: No limitations Head: Normal to inspection Ears: Hearing grossly normal bilaterally Nose: Normal external nose present Face and sinus: Normal facial exam Eyes: Appearance normal, both eyes and all related structures Neck: Normal visual inspection and Yes full ROM Respiratory: Normal respiratory effort and able to speak in complete sentences. Clear to auscultation bilaterally Cardiovascular: Regular rate and rhythm. Normal S1 and S2 GI: Normal to inspection. Soft to palpation and nontender Skin: No rashes or lesions noted Neuro: Patient oriented x3 Extremities: Feet were intact bilat, positive sensation use of monofilament Results - Labs: Hemoglobin A1c 7.3% Plan The patient will continue to manage his diabetes through dietary modifications, as he prefers not to start new medications at this time. Follow-up is scheduled in four months, with repeat labs to be conducted prior to the visit. The anemia will be re-evaluated in the near future to monitor any changes. Preventative care includes scheduling a microalbumin test in October and ensuring the patient follows up on the colon cancer screening with the gastroenterology provider. Discussion Notes I discussed with the patient the importance of managing his diabetes through lifestyle changes, particularly focusing on dietary modifications. We agreed on a follow-up in four months, with labs to be repeated before the visit. I also informed him about the need to monitor his anemia and the upcoming microalbumin test in October. We discussed the colon cancer screening, and he is awaiting a callback from the gastroenterology provider. Patient Instructions - Continue dietary modifications to xochitl ge diabetes. - Schedule and complete repeat labs befo re the next visit in four months. - Follow up on the colon cancer screenin with the gastroenterology provider. - Attend the microalbumin test scheduled for October. [facility] Medical History Left knee pain Kidney stones Mass of right elbow Overweight (BMI 25.0-29.9) Vitamin D deficiency Dyslipidemia Diabetes type 2, controlled Surgical History Hx of elbow surgery Family History Father Diabetes mellitus Mother Diabetes mellitus Brother No problems noted. Sister Diabetes mellitus Sister No problems noted. Sister No problems noted. Sister No problems noted. Sister No problems noted. Sister No problems noted. 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 1. Little interest or pleasure in doing things: not at all 2. Feeling down, depressed, or hopeless: not at all 3. Trouble falling or staying asleep, or sleeping too much: not at all 4. Feeling tired or having little energy: not at all 5. Poor appetite or overeating: not at all 6. Feeling bad about yourself - or that you are a failure or have let yourself or your family down: not at all 7. Trouble concentrating on things, such as reading the newspaper or watching television: not at all 8. Moving or speaking so slowly that other people could have noticed. Or the opposite - being so fidgety or restless that you have been moving around a lot more than usual: not at all 9. Thoughts that you would be better off or of hurting yourself in some way: not at all Total score: 0 Depression Screening Interpretation: Negative Depression Screening Done: Yes 92922 - PHQ-9 Billing: Yes Source: Developed by Drs. Zack Verde, Maggi Lechuga, Giacomo Rg and colleagues, with an educational carla from [employer]. Thrive Questionnaire Date Thrive assessed: 03/23/25 I am a: Patient What is your living situation today?: I have a steady place to live Within the past 12 months, did the food you bought not last and you didn't have the money to get more?: Never true Within the past 12 months, did you worry whether your food would run out before you got money to buy more?: Never true Do you have trouble paying for medicines?: No Do you have trouble getting transportation to medical appointments?: No Do you have trouble paying your heating and electricity bill?: No Do you have trouble taking care of your child, family member or friend?: No Do you have trouble with day-to-day activities such as bathing, preparing meals, shopping, managing finances, etc.?: No Are you currently unemployed and looking for a job?: No Are you interested in more education?: No Please select the resources that you would like help with: None Currently or been in a relationship where the following occur: No concerns reported THRIVE Score: 0 SAMMY-7 AMB Questionnaire SAMMY-7 Date SAMMY - 7 assessed: 07/20/25 Feeling nervous, anxious, or on edge: 0 = Not at all Not being able to stop or control worryin = Not at all Worrying too much about different things: 0 = Not at all Trouble relaxin = Not at all Being so restless that it is hard to sit still: 0 = Not at all Becoming easily annoyed or irritable: 0 = Not at all Feeling afraid as if something awful might happen: 0 = Not at all Total SAMMY-7 score (0-4 normal; 5-9 mild; 10-14 moderate; 15-21 severe): 0 Source: Developed by Drs. Zack Verde, Maggi Lechuga, Giacomo Rg and colleagues, with an educational carla from [employer]. SAMMY-7 Assessment Billing SAMMY-7 Assessment Tool: SAMMY-7 Assessment 40432 Physical exam (Primary Care) Vital Signs: Last Vital Signs Pulse 95 07/20/25 13:54 Resp 16 07/20/25 13:54 BP 120/80 07/20/25 13:54 Pulse Ox 95 07/20/25 13:54 Oxygen Delivery Method Room Air 07/20/25 13:54 BMI result Body Mass Index 26.8 Tobacco/Smoking Status: Tobacco use Status Tobacco use date assessed 07/20/25 07/20/25 13:56 Patient Tobacco Use Status Never used Tobacco 07/20/25 13:56 e-Cigarette/Vaping Use Never Used 07/20/25 13:56 PHQ-9: PHQ-9 Score PHQ-9: Total score 0 07/20/25 13:56 Depression Screening Interpretation: Negative Thrive Assessment: Date of Thrive Assessment Date Thrive assessed 03/23/25 07/20/25 13:56 Currently or been in a relationship where the following occur: No concerns reported Coding Level of Care Code Est Pt Level 3 (08382) Diagnoses Diabetes type 2, controlled E11.9 Anemia D64.9 Additional Codes SAMMY-7 Assessment Billing - SAMMY-7 Assessment Tool: SAMMY-7 Assessment 56468 ([id number]) PHQ-9 - 26789 - PHQ-9 Billing: Yes ([id number]) Assessment & Plan Assessment & Plan (1) Diabetes type 2, controlled: Code(s): E11.9 - Type 2 diabetes mellitus without complications Category: Medical (2) Anemia: Code(s): D64.9 - Anemia, unspecified Category: Medical Plan . Orders: Orders Complete Blood Count Auto Diff Today D64.9 - Anemia, unspecified, E11.9 - Type 2 diabetes mellitus without complications Comprehensive [place]. Panel Fast Today D64.9 - Anemia, unspecified, E11.9 - Type 2 diabetes mellitus without complications Vitamin B12 and Folate Today D64.9 - Anemia, unspecified, E11.9 - Type 2 diabetes mellitus without complications Ferritin Today D64.9 - Anemia, unspecified, E11.9 - Type 2 diabetes mellitus without complications IRON PROFILE Today D64.9 - Anemia, unspecified, E11.9 - Type 2 diabetes mellitus without complications Lactate Dehydrogenase Today D64.9 - Anemia, unspecified, E11.9 - Type 2 d iabetes mellitus without complications Microalbumin, Random (w Creat) Today D64.9 - Anemia, unspecified, E11.9 - Type 2 diabetes mellitus without complications Reticulocyte Count Today D64.9 - Anemia, unspecified, E11.9 - Type 2 diabetes mellitus without complications
[2025-07-20 13:54] VITALS: BP 120/80; PULSE 95; RESP 16; O2SAT 95; BMI 26.8
--- OUTSIDE RECORDS SUMMARY | 2025-07-20 14:39 | XMS_ITS | Clinical Summary ---
Author Organization [facility] Address [address] [place] [address] Care Team Providers Care Cord Tire Builder Name Role Phone Unavailable Primary Care Provider [...]
--- OUTSIDE RECORDS SUMMARY | 2025-07-20 14:39 | XMS_ITS | Patient Health Record ---
Author Organization [facility] Address [address] [place] [address] Care Team Providers Care Commodity Manager Name Role Phone Willian Bah M.D. 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) Active confirmed Problem 629691421 Elevated liver function tests (R79.89) Active confirmed Problem 861792879 Elevated liver enzymes (R74.8) Active confirmed Problem [id number] Fatty liver (K76.0) Active confirmed Plan Of Treatment Pending Test Test Name Order Date LIVER PROFILE 08/07/2016 LIVER PROFILE 11/19/2016 CBC w DIFF 10/10/2015 CBC w DIFF 11/19/2016 PROTHROMBIN TIME (PT, INR) 10/10/2015 PROTHROMBIN TIME (PT, INR) 11/19/2016 PARTIAL THROMBOPLASTIN TIME (PTT) 2015 PARTIAL THROMBOPLASTIN TIME (PTT) 2014 [id number]-[id number]-YBDESSQDERR (A1A) 11/19/2016 CERULOPLASMIN 10/04/2015 US LIVER BIOPSY CORE GUIDE 10/10/2015 Insurance Providers Payer Name Payer Address Payer Phone Subscriber Number Group Number Insured Name Patient Relationship to Insured Coverage Start Date Coverage End Date [employer]/ [address] (check p/a) 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
--- OUTSIDE RECORDS SUMMARY | 2025-07-20 14:39 | XMS_ITS | Encounter Summary ---
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 Best phone# [phone] Followed DT: TE sent to clinic admin pool documented in this encounter Plan of Treatment Not on file documented as of this encounter Visit Diagnoses Not on filedocumented in this encounter Care Teams Laborer Electroplating Relationship Specialty Start Date End Date Guzman Miranda [address] [place] [address] PCP - General 03/04/22 documented as of this encounter
--- OUTSIDE RECORDS SUMMARY | 2025-07-20 14:39 | XMS_ITS | Clinical Summary ---
Author Organization [facility] Address [address] [place] [address] Phone Care Team Providers Care Cnc Mill And Lathe Operator Name Role Phone Guzman Miranda NP Primary [...] Medical Devices Not on file Insurance OUT [facility]PO OUT [facility] P[facility] OUT [facility] PPO BLUE CROSS OUT OF STATE PPO BLUE [place]OSS OUT OF STATE PPO BLUE [place] OUT OF STATE PPO BLUE CROSS OUT OF STATE PPO BLUE CROSS OUT OF STATE PPO BLUE CROSS OUT OF STATE PPO Care Teams Cnc Mill And Lathe Operator Relationship Specialty Start Date End Date Guzman Miranda NP [address] [facility] [place] [address] PCP - General Family Medicine 08/02/22 Destinee Aparicio MD [address] [place] [address] [email or web address] Fellow Oncologist Hematology and Oncology 09/06/22 Additional Source Comments The information contained in this document represents components of the legal health record. It is not the complete legal health record.[facility]
== END 2025-07-20 16:33 | disposition home or self-care (01) ==
LOC: HO.HMCC 13:42
PROVIDERS: PCP Nurse Practitioner Family; Visit Provider Nurse Practitioner Family
DX: E11.9 Type 2 diabetes mellitus without complications (principal); D64.9 Anemia, unspecified

== ENCOUNTER → 2025-07-20 13:41 | Outpatient (BNVA) | payer BC, SELFPAY | PROVIDERS: PCP Nurse Practitioner Family; Visit Provider Nurse Practitioner Family | DX: E11.9 Type 2 diabetes mellitus without complications (principal); D64.9 Anemia, unspecified | CPT/HCPCS: 96127 ==